=== PATIENT | female | born 1945 | race Caucasian/White ===

== ENCOUNTER 2017-08-02 11:31 | Inpatient (IN) | payer MEDICARE, OTHER ==
[2017-08-02] MEDS ORDERED: Lidocaine 4% Cream 5 GM TUBE w/ Tegaderm ONE (12:18)
[2017-08-02 12:40] LABS: Bilirubin Negative (Negative); Blood, Urine Negative (Negative); Glucose, Urine (Dipstick) Negative (Negative); Ketone, Urine Negative (Negative); Nitrite Negative (Negative); Protein, Urine (Dipstick) Negative (Neg-Trace); Urobilinogen 0.2 mg/dL (0.2-1.0)
--- NOTE | 2017-08-02 13:10 | RAD ---
PORTABLE CHEST: History: Shortness of breath. Comparison: 06-23-17 FINDINGS: Heart size is borderline with internal defibrillator device present. Right sided Mediport catheter i s again noted. The lungs are clear of infiltrates. IMPRESSION: 1. No active intrathoracic disease. 2. Borderline cardiomegaly. Scoliosis. Stable chest. POS: OFF
[2017-08-02 13:22] LABS: Hematocrit 23.4 % (36.0-47.0); Mean Platelet Volume 7.5 fL (7.4-10.4); Red Blood Cell (RBC) Count 2.52 mill/uL (4.20-5.40); White Blood Cell (WBC) Count 0.9 thou/uL (4.8-10.8)
[2017-08-02 13:45] LABS: Lactic Acid - Sepsis 1.6 mmol/L (0.5-2.2)
[2017-08-02 13:48] LABS: Hypochromia SLIGHT = 6-15 cells (100X) (0-5/hpf); Neutrophil 42 % (42-75)
[2017-08-02 13:49] LABS: ALT (SGPT) 8 U/L (8-55); AST (SGOT) 14 U/L (5-34); Alkaline Phosphatase 62 U/L (40-150); Anion Gap 12 mmol/L (10-20); BUN (Urea Nitrogen) 30 mg/dL (9.8-20.1); Bilirubin, Total 0.5 mg/dL (0.2-1.2); CK (CPK) 22 U/L (29-168); Calc. Creatinine Clearance 0 mL/min (70-130); Calcium 9.4 mg/dL (7.8-10.44); Carbon Dioxide 29 mmol/L (23-31); Chloride 90 mmol/L (98-107); Estimated GFR-MDRD 21; Globulin 2.5 g/dL (2.4-3.5); Magnesium 1.2 mg/dL (1.6-2.6)
[2017-08-02 13:50] LABS: Troponin I Less than 0.010 ng/mL (< 0.028)
[2017-08-02] MEDS ORDERED: Spironolactone 25 MG TAB PO SCH (16:46)
[2017-08-02] MEDS ORDERED: HYDROcodone/Acetaminophen 5/325 mg Tablet PO PRN (16:46)
[2017-08-02] MEDS ORDERED: Acetaminophen 325 MG TAB PO PRN (16:46)
[2017-08-02] MEDS ORDERED: Zolpidem Tartrate 5 MG TAB PO PRN (16:46)
[2017-08-02] MEDS: Sodium Chloride 0.9% 1,000 ML IV SCH (17:16)
--- NOTE | 2017-08-02 18:05 | HP ---
PRIMARY CARE PHYSICIAN: Logan Washington M.D. ONCOLOGIST: Griselda Smith M.D. [employer] SALES GREETER: Larry Fletcher M.D. CHIEF COMPLAINT: Referred to the [facility] by [facility] for h yponatremia and hypotension. HISTORY OF PRESENT ILLNESS: The patient was at the oncologist's office for a Neupogen shot today. She was noted to have low blood pressure. She was queasy, woozy which has been coming and going ove r the past week. She has breast cancer, metastatic to her liver. She had chemotherapy 6 days ago, but is unable to have chemotherapy this week due to her leukopenia. She has had no definite fever, sweats, chills, urinary complaints or respiratory complaints. PAST MEDICAL HISTORY: Breast cancer diagnosed 2010 to the liver. She had a left mastectomy and a r esection of a solitary met from the liver. 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 She has had episodes of congestive heart failure in the past. She has a pacemaker defib rillator. She had a history of thyroid insufficiency. She has recent history of UTI and is current ly on antibiotics. CURRENT MEDICATIONS: [place] Thyroid 60 mg a day, aspirin 325 mg a day, Coreg 3.125 mg twice a day, Diovan 40 mg a day, sotalol 120 mg twice a day, spironolactone 25 mg a day, probiotic, Levaquin 500 mg a day for 10 days, she is on day #8. ALLERGIES: PENICILLIN. PAST SURGICAL HISTORY: Partial hepatectomy in 2012, breast cancer surgery in 2011, pinning of a lef t hip fracture in 2012. FAMILY HISTORY: Negative for breast cancer or coronary artery disease. Mother with colon canc er. Father of some sort of insufficiency which she is unable to describe. SOCIAL HISTORY: She is . FULL CODE status. Her surrogate decision maker is her son, Bjorn Gonzalez. No tobacco. No alcohol. REVIEW OF SYSTEMS: GENERAL: No headaches or fainting. EYES: No double vision, blurred vision, flashing lights. ENT: No ear pain or drainage. No nasal bleeding. No trouble swallowing. CARDIAC: No chest pain, orthopnea or paroxysmal nocturnal dyspnea. RESPIRATORY: Chronic dyspnea on exertion. No cough or wheezing. GASTROINTESTINAL: She has had some indigestion on the Levaquin with no vomiting, no true abdominal pain. She has constipation off and on. No diarrhea. GENITOURINARY: No hematuria or dysuria. MUSCULOSKELETAL: She has occasional swelling in her legs when she eats too much salt. No pain in h er legs or joints. NEUROLOGIC: No strokes, seizures, focal weakness. PSYCHIATRIC: No anxiety, depression. SKIN: No bruising, bleeding or rash. HEME/LYMPH: No tender or swollen lymph nodes in axilla, inguinal or cervical area. PHYSICAL EXAMINATION: GENERAL: She is an alert, pleasant lady, oriented x3, cooperative. VITAL SIGNS: Her blood pressure has been taken multiple times, has been as low as 88/26. It was 90 /30 when I saw her in the emergency room, her pulse ranges from 65-74, respirations are 18-19, tempe rature is 98, room air sat is excellent 96-100. HEAD, EYES, EARS, NOSE AND THROAT: Reveal pupils equal, round, and reactive to light. Extraocular movements are intact. Sclerae are white. Tympanic membranes clear. Nose is clear. Throat is maria d r. NECK: Supple, without jugular venous distention, adenopathy, thyromegaly or bruits. CHEST: Clear to auscultation and percussion. HEART: Regular rate and rhythm. First and second heart sounds are clear. There are no appreciated murmurs or gallops. ABDOMEN: Soft, bowel sounds are normal. There is no hepatosplenomegaly, no mass, no rebound, no br uits. EXTREMITIES: Reveal no cyanosis, clubbing or edema. SKIN: Warm and dry, no bruises or rashes. PULSES: Carotid, radial, femoral, and dorsalis pedis pulses intact. HEME/LYMPH: No tender or swollen lymph nodes in axilla, inguinal or cervical area. BREASTS: Right breast is surgically absent. There is a MediPort in the right chest going up into t he right IJ. NEUROLOGICAL: Cranial nerves II-XII are intact. Deep tendon reflexes are symmetric. Moves all ext remities. DIAGNOSTIC DATA: Chest x-ray done in the emergency room today reveals a defibrillator pacemaker in the left upper chest. Her MediPort going up into the neck down into the heart, lung lewis are maria d r. There is no distinct cardiomegaly. She does have some rotation, reviewed by me. EKG, dual chintan destiny pacemaker with normal function, reviewed by me. LABORATORY DATA: Sodium 127, potassium 4.1, chloride 90, CO2 of 29, BUN 30, creatinine 2.27 and two weeks ago was 1.42, BUN 30, white count 0.9, 52% lymphocytes, hemoglobin 8.0, platelet count 140. ADMITTING DIAGNOSES: 1. Hypotension. 2. Hyponatremia. 3. Acute renal failure on chronic kidney disease stage 3. 4. Breast cancer. 5. Neutropenia. 6. Anemia. 7. Cardiomyopathy. 8. Hypothyroidism. PLAN: 1. Admit. 2. Gentle IV fluids with normal saline to treat hyponatremia and hypotension, care will be required to watch for precipitating congestive heart failure in this lady with longstanding cardiomyopathy. 3. CBC and BMP daily to monitor neutropenia and renal function in the face of acute renal failure o n top of chronic kidney disease stage 3. 4. The patient has 2 more days of Levaquin for urinary tract infection. Those will be continued. The patient has had blood cultures drawn in the oncologist's office. Those will be monitored. 5. Continue home medicines. DISCUSSION: This is a complicated lady with low sodium, low blood pressure, a [id number] ca rdiomyopathy, post-chemotherapy with neutropenia and anemia. This lady cannot be safely monitored a nd treated in 1 overnight, she will need 2-3 overnights to safely care for her problems.
[2017-08-02] MEDS: ALPRAZolam 0.25 MG TAB PO SCH (21:01)
[2017-08-02] MEDS: Sotalol HCl 80 MG TAB PO SCH (21:02)
[2017-08-02] MEDS: Carvedilol 3.125 MG TAB PO SCH (21:02)
[2017-08-03 05:21] LABS: White Blood Cell (WBC) Count 0.9 thou/uL (4.8-10.8)
[2017-08-03] MEDS: Sodium Chloride 0.9% 1,000 ML IV SCH ×2 (05:24→21:58)
[2017-08-03 05:34] LABS: Anion Gap 10 mmol/L (10-20); BUN (Urea Nitrogen) 25 mg/dL (9.8-20.1); Calc. Creatinine Clearance 30 mL/min (70-130); Calcium 8.5 mg/dL (7.8-10.44); Carbon Dioxide 27 mmol/L (23-31); Chloride 97 mmol/L (98-107); Estimated GFR-MDRD 41
[2017-08-03 05:59] LABS: Band 4 % (5-11); Hematocrit 20.3 % (36.0-47.0); Neutrophil 34 % (42-75); Nucleated RBC 2 % (0); Reactive Lymphocytes 2 % (0-10); Red Blood Cell (RBC) Count 2.16 mill/uL (4.20-5.40)
[2017-08-03] MEDS: Carvedilol 3.125 MG TAB PO SCH ×2 (08:58→21:51)
[2017-08-03] MEDS: Sotalol HCl 80 MG TAB PO SCH ×2 (08:58→21:50)
[2017-08-03] MEDS: Aspirin 325 MG TAB PO SCH (08:58)
[2017-08-03] MEDS: Enoxaparin Sodium 40 MG/0.4 ML SYRINGE SC SCH (08:59)
[2017-08-03] MEDS ORDERED: Famotidine 20 MG TAB PO SCH (11:30)
--- NOTE | 2017-08-03 14:34 | PDOC.PN ---
- Subjective Encounter Start Date: 08/03/17 Encounter Start Time: 13:50 Subjective: no complaints; no: headache, sinus pain, sore throat, sob, cough, cp , abd -: pain, dysuria, rash, neck pain, nor headache - Objective Resuscitation Status: Resuscitation Status FULL:Full Resuscitation MAR Reviewed: Yes Vital Signs & Weight: Vital Signs (12 hours) Temp Pulse Resp BP Pulse Ox 08/03/17 12:27 97.9 F 71 16 109/56 L 97 08/03/17 08:06 98.5 F 73 14 116/56 L 99 08/03/17 08:00 98.5 F 73 14 99 08/03/17 04:00 97.9 F 81 16 102/50 L 94 L Weight Admit Weight 106 lb 7 oz Weight 105 lb 14.4 oz I&O: 08/02/17 08/03/17 08/04/17 06:59 06:59 06:59 Intake Total 1770 240 Output Total 1000 Balance 770 240 Result Diagrams: 08/03/17 04:55 08/03/17 04:55 Radiology Reviewed by me: Yes Phys Exam - Physical Examination Constitutional: NAD HEENT: PERRLA, moist MMs, sclera anicteric Neck: no nodes, no JVD, full ROM Respiratory: no wheezing, no rales, no rhonchi, clear to auscultation bilateral Cardiovascular: RRR, no significant murmur Gastrointestinal: soft, non-tender, no distention, positive bowel sounds Musculoskeletal: no edema, pulses present Neurological: non-focal, normal sensation, moves all 4 limbs Psychiatric: normal affect, A&O x 3 Skin: no rash Dx/Plan (1) Arterial hypotension Status: Acute Qualifiers: Hypotension type: hypotension due to drug Qualified Code(s): I95.2 - Hypotension due to drugs Comment: most consistent with medication-induced. cardiovascular medications adjusted, monitor for response. currrently asymptomatic. monitor for s/o sepsis as is neutropenic ANC <500 (2) Chemotherapy induced neutropenia Code(s): D70.1 - AGRANULOCYTOSIS SECONDARY TO CANCER CHEMOTHERAPY; T45.1X5A - ADVERSE EFFECT OF ANTINEOPLASTIC AND IMMUNOSUP DRUGS, INIT Status: Acute Comment: on chemotherapy due to BRCA; cont neutropenic precautions (3) Breast CA Status: Chronic Qualifiers: Patient sex: female (4) CHF (congestive heart failure) Code(s): I50.9 - HEART FAILURE, UNSPECIFIED Status: Acute Qualifiers: Congestive heart failure type: systolic Congestive heart failure chronicity : chronic Qualified Code(s): I50.22 - Chronic systolic (congestive) heart failure Comment: 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 Euvolemic, without exacerbation. (5) Hypocalcemia Code(s): E83.51 - HYPOCALCEMIA Status: Acute Comment: replace, recheck (6) Hypokalemia Code(s): E87.6 - HYPOKALEMIA Status: Acute Comment: due to decreased oral intake, increased GI loss. replace, recheck (7) Hypomagnesemia Code(s): E83.42 - HYPOMAGNESEMIA Status: Acute Comment: due to decreased oral intake and increased Gi loss, replace, recheck - Plan cont current plan of care Patient responding to adjustment in cardiovascular medications. -: low clinical suspicion of sepsis -: monitor overnight; as is neutropenic, goal is to discharge [facility] if -: hospitalization not absolutely necessary -: Anticipate discharge in am. * .
--- NOTE | 2017-08-03 15:19 | CON ---
DATE OF CONSULTATION: 08/03/2017 REASON FOR CONSULTATION: Metastatic breast cancer. HISTORY OF PRESENT ILLNESS: Ms. 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 She has liver metastasis. She is under the a dvisement of [facility], but received her treatment locally. Her current treatment consists of N avelbine, which she started in May of 2017. She has struggled to maintain her white blood count for treatment requiring Neupogen for several days between treatments. Her last cycle was on 017. She presented to our clinic yesterday for routine lab draw and had a low blood pressure of 79/ 38. She was neutropenic with a white count of 900. Her sodium was 127 and her creatinine was eleva becca at 2.27 from a baseline of about 1.4. She was sent to the ER for evaluation and was admitted fo r hypotension, hyponatremia and dehydration. She was gently hydrated over the past 24 hours and her sodium and creatinine have improved. Her white count has remained 900. She has had no fever throu ghout the course of this chemotherapy. She denies any chest pain or shortness of breath. No upper respiratory symptoms. She does have mild bloating and feels constipated, but no abdominal pain. No rash or swelling in her extremities. PAST MEDICAL HISTORY: 1. Metastatic breast cancer. 2. Cardiomyopathy. 3. Hypothyroidism. PAST SURGICAL HISTORY: 1. Cardiac defibrillator placement. 2. Mastectomy. 3. Hip surgery. 4. Partial hepatectomy. ALLERGIES: AMOXICILLIN. HOME MEDICATIONS: 1. [place] Thyroid 60 mg daily. 2. Carvedilol 6.25 mg daily. 3. Diovan 40 mg daily. 4. Sotalol 120 mg 2 tabs daily. 5. Spironolactone and hydrochlorothiazide 25 and 25 b.i.d. FAMILY HISTORY: Mother had colon cancer at the age of 56. SOCIAL HISTORY: , has 1 child. Lives alone. No alcohol, tobacco or illicit drug use. REVIEW OF SYSTEMS: Twelve-point review of systems is negative except for noted in the HPI. PHYSICAL EXAMINATION: VITAL SIGNS: Temperature is 98.5, pulse is 73, respiratory rate 14, BP is 116/56. She is 99% on ro om air. GENERAL: Well-developed, well-nourished female in no acute distress. HEENT: Normocephalic, atraumatic. Pupils equal and reactive to light. No oral lesions. NECK: Supple without JVD or mass. CARDIOVASCULAR: Regular rate and rhythm. LUNGS: Clear. ABDOMEN: Soft, nontender, bowel sounds are positive. EXTREMITIES: There is no clubbing, cyanosis or edema. SKIN: No rash. HEMATOLOGIC: There is no petechia or purpura. NEUROLOGIC: Nonfocal. PSYCHIATRIC: The patient is alert and oriented and appropriate. PERTINENT LABORATORY AND X-RAYS: Current WBCs are 900, hemoglobin 6.7, hematocrit 20.3, platelet co unt 116,000. She has 34% neutrophils, 4% bands, 42% lymphocytes, and 14% monocytes. Sodium is 130, potassium 3.7, chloride 97, CO2 is 27, BUN is 25, creatinine 1.29, calcium is 8.5, magnesium 1.2. Total bilirubin is 0.5, AST is 14, ALT is 8, alkaline phosphatase is 62, creatinine kinase is 22. C K-MB 0.8. Troponin is negative. Serum total protein is 6, albumin 3.4, globulin 2.5. Urine was ne gative for bacteria. Chest x-ray showed no acute process but cardiomegaly. ASSESSMENT: 1. Metastatic breast cancer. 2. Neutropenia secondary to chemo. 3. Hyponatremia. 4. Dehydration. 5. Acute kidney injury. DISCUSSION: The patient will have Neupogen continued in the inpatient setting. She has been given IV fluids with improvement in her blood pressure and her hyponatremia. We will maintain neutropenic precautions. The patient is complaining of constipation. We will add Colace and Pepcid to her reg imen. Her hemoglobin dropped overnight from 8-6.7, it is likely hemodilution. We will recheck in t he a.m. and transfuse for hemoglobin less than 7. Hopefully, she will improve in the next 24 hours as long as she remains fever free. Thank you for the consult. We will follow her hospital course closely. Can be discharged with neut chema as this has been her .
[2017-08-03] MEDS ORDERED: Valsartan 80 MG TAB PO SCH (21:00)
[2017-08-03] MEDS: ALPRAZolam 0.25 MG TAB PO SCH (21:50)
[2017-08-03] MEDS: Famotidine 20 MG TAB PO SCH (21:51)
[2017-08-04 06:13] LABS: #Eosinphils 0.1 thou/uL (0.0-0.7); #Lymphocytes 0.6 thou/uL (1.20-3.40); #Monocytes 0.2 thou/uL (0.11-0.59); #Neutrophils 1.1 thou/uL (1.40-6.50); %Basophils 1.9 % (0.0-1.0); %Lymphocytes 27.7 % (21.0-51.0); %Monocytes 11.4 % (0.0-10.0); Hematocrit 22.6 % (36.0-47.0); Mean Platelet Volume 6.8 fL (7.4-10.4); Red Blood Cell (RBC) Count 2.42 mill/uL (4.20-5.40)
[2017-08-04 06:36] LABS: Anion Gap 10 mmol/L (10-20); BUN (Urea Nitrogen) 15 mg/dL (9.8-20.1); Calc. Creatinine Clearance 40 mL/min (70-130); Calcium 8.9 mg/dL (7.8-10.44); Carbon Dioxide 28 mmol/L (23-31); Chloride 94 mmol/L (98-107); Estimated GFR-MDRD 56
[2017-08-04] MEDS: Docusate 100 MG CAP PO PRN ×2 (09:36→20:43)
[2017-08-04] MEDS: Sotalol HCl 80 MG TAB PO SCH ×2 (09:37→20:36)
[2017-08-04] MEDS: Carvedilol 3.125 MG TAB PO SCH ×2 (09:37→20:39)
[2017-08-04] MEDS: Aspirin 325 MG TAB PO SCH (09:37)
[2017-08-04] MEDS: Enoxaparin Sodium 40 MG/0.4 ML SYRINGE SC SCH (09:42)
[2017-08-04] MEDS: Famotidine 20 MG TAB PO SCH ×2 (09:42→20:36)
[2017-08-04] MEDS: ALPRAZolam 0.25 MG TAB PO PRN (11:10)
--- NOTE | 2017-08-04 12:30 | PRG ---
DATE OF SERVICE: 08/04/2017 SUBJECTIVE: The patient was seen and examined at bedside. She is feeling better. Her blood pressu re is doing better. She ate her breakfast without any problems. She asked to discontinue her IV fl uids because she was always tendency to retain water. OBJECTIVE: VITAL SIGNS: Blood pressure is 104/53, pulse is 94, temperature is 98.6, pulse oximetry 74, and res piratory rate is 18. HEENT: Her head is normocephalic and atraumatic. Eyes are PERRLA. Her scalp is shaved. Pupils ar e responding to light properly. Conjunctivae pale. Oral mucosa is moist. NECK: Supple, no lymphadenopathy. LUNGS: Clear. HEART: S1, S2 normal. No S3, no S4, no murmur. ABDOMEN: Soft, nontender, nondistended. Bowel sounds are present. No organomegaly. EXTREMITIES: No clubbing, cyanosis, or edema. NEUROLOGIC: She is alert and oriented x4. There is no any motor or sensory deficit. Cranial nerve s are intact. LABORATORY DATA: Showed white count of 2.0, hemoglobin 7.6, hematocrit 22.6, platelet count is 133. Sodium of 128, potassium 3.8, chloride 94, CO2 of 28, BUN 15, creatinine 0.98. The rest of chemis try within normal limits. IMPRESSION: 1. Hypotension, resolved. This was most likely related to dehydration. Her creatinine and BUN is back to normal with IV fluids. 2. Leukopenia improving. She received Neupogen yesterday. Her WBC level is up to 2.0 today and christa is scheduled for additional shot of Neupogen 480 mcg subcutaneously at 9:00 today. 3. Hypothyroidism, on replacement. 4. History of right breast cancer with metastasis to the liver, status post chemotherapy. 5. Normocytic anemia, most likely worsened with IV fluids. Now, her hemoglobin is up to 7.6 this m orning, so she would not be transfused. 6. Hyponatremia and hypochloremia. We will limit her fluid intake to 1500 and will try to get her out of bed today and if she is stable, I would like to send her home late tonight or early tomorrow morning to prevent some complications from being in the hospital and having significant neutropenia and we will continue deep venous thrombosis prophylaxis with Lovenox, and peptic ulcer disease proph ylaxis with Pepcid.
--- NOTE | 2017-08-04 14:48 | EKG ---
Test Reason : Blood Pressure : / mmHG Vent. Rate : 083 BPM Atrial Rate : 083 BPM P-R Int : 218 ms QRS Dur : 114 ms QT Int : 414 ms P-R-T Axes : 086 096 071 degrees QTc Int : 486 ms Atrial-paced rhythm with prolonged AV conduction with frequent ventricular-paced complexes and with occasional Premature ventricular complexes Rightward axis Pulmonary disease pattern Septal infarct , age undetermined Abnormal ECG Confirmed by NELL LANDA, TEOFILO Murphy ([id number]), technical writer and editor ALICE PAULA ([id number]) on 08/04/2017 2:48:40 PM Referred By: ROGER Confirmed By:TEOFILO CAMEJO MD
[2017-08-04] MEDS ORDERED: Sodium Chloride 0.9% 250 ML 250 ML IVPB SCH (20:00)
[2017-08-04] MEDS: ALPRAZolam 0.25 MG TAB PO SCH (20:36)
[2017-08-05 06:39] VITALS: BMI 18.7
[2017-08-05 06:43] LABS: Anion Gap 10 mmol/L (10-20); BUN (Urea Nitrogen) 13 mg/dL (9.8-20.1); Calc. Creatinine Clearance 42 mL/min (70-130); Calcium 8.6 mg/dL (7.8-10.44); Carbon Dioxide 27 mmol/L (23-31); Chloride 94 mmol/L (98-107); Estimated GFR-MDRD 57
[2017-08-05 06:54] LABS: Hematocrit 22.9 % (36.0-47.0); Red Blood Cell (RBC) Count 2.45 mill/uL (4.20-5.40); White Blood Cell (WBC) Count 8.1 thou/uL (4.8-10.8)
[2017-08-05 06:55] LABS: Band 9 % (5-11); Neutrophil 67 % (42-75); Nucleated RBC 2 % (0)
[2017-08-05] MEDS: Aspirin 325 MG TAB PO SCH (09:12)
[2017-08-05] MEDS: Carvedilol 3.125 MG TAB PO SCH (09:12)
[2017-08-05] MEDS: Sotalol HCl 80 MG TAB PO SCH ×2 (09:12→20:30)
[2017-08-05] MEDS: Famotidine 20 MG TAB PO SCH ×2 (09:12→20:28)
[2017-08-05] MEDS: Enoxaparin Sodium 40 MG/0.4 ML SYRINGE SC SCH (09:13)
[2017-08-05] MEDS: ALPRAZolam 0.25 MG TAB PO PRN (09:14)
[2017-08-05] MEDS: Docusate 100 MG CAP PO PRN (09:43)
[2017-08-05 10:55] LABS: Potassium, Urine 15.5 mmol/L
[2017-08-05 11:00] LABS: Uric Acid 8.3 mg/dL (2.6-6.0)
[2017-08-05 11:03] LABS: Magnesium 0.9 mg/dL (1.6-2.6)
[2017-08-05] MEDS ORDERED: Magnesium Oxide 400 MG TAB PO SCH ×2 (11:30→21:00)
[2017-08-05] MEDS ORDERED: Magnesium 2 GM/NS 0.9% 100 ML 2 GM in Premix Bag 1 BAG IVPB SCH (11:30)
--- NOTE | 2017-08-05 14:40 | PRG ---
DATE OF SERVICE: 08/05/2017 SUBJECTIVE: The patient is seen and examined at the bedside. The patient is doing somewhat better today, although she had hypotensive episode last night. She was giving IV fluids, but she is doing this better this morning. PHYSICAL EXAMINATION: VITAL SIGNS: Her blood pressure is up to 128/61, pulse is 73, temperature is 98.3, her maximal temp erature is 98.3, respiratory rate is 16, and pulse oximetry is 96% on room air. HEAD: Atraumatic, normocephalic. HEENT: Skin is pale. Pupils are responding to light properly. Conjunctivae are pale. Oral mucosa is moist. NECK: Supple, no lymphadenopathy. Thyroid is not palpable. LUNGS: Clear. HEART: S1, S2 normal, no S3, no S4 or any murmur. ABDOMEN: Soft, nontender, nondistended. Bowel sounds are present. No organomegaly. EXTREMITIES: No clubbing, cyanosis or edema. NEUROLOGIC: She is alert and oriented x4. There is no any sensory or motor deficits present. Cran ial nerves are intact. Right upper chest is with a MediPort placed under the skin. There is no matt thema of this area. LABORATORY DATA: Showed white count of 8.1, hemoglobin 7.6, hematocrit 22.9, and platelet count is 151. Sodium is 127, potassium 3.9, chloride 94, CO2 is 27, BUN 13, creatinine 0.97, glucose 90, and calcium 8.6. Microbiology: Two blood cultures came back negative. IMPRESSION AND PLAN: 1. Hypotension, recurrent. The patient was given IV bolus. We are going to stop her Coreg and con tinue her sotalol. 2. Leukopenia, status post chemotherapy, improved with Neupogen. Her white count is up to 8.1 toda y. We will continue Neupogen daily. 3. Hyponatremia and hypochloremia. The patient was placed on oral fluids less than 1500 mL per 24 hours. Also, I am going to obtain urine and serum osmolalities and urine electrolytes to do further diagnostic workup of her hyponatremia to rule out syndrome of inappropriate antidiuretic hormone re lated to cancer. Also, we are going to continue her peptic ulcer disease prophylaxis with Pepcid an d deep venous thrombosis prophylaxis with Lovenox. She will ambulate in the castro today and we will see whether she can be discharged tomorrow if her hyponatremia and hypochloremia improves with curre nt measures.
[2017-08-05] MEDS: ALPRAZolam 0.25 MG TAB PO SCH (20:28)
[2017-08-06] MEDS: ALPRAZolam 0.25 MG TAB PO PRN (02:16)
[2017-08-06 06:27] LABS: Anion Gap 11 mmol/L (10-20); BUN (Urea Nitrogen) 11 mg/dL (9.8-20.1); Calc. Creatinine Clearance 47 mL/min (70-130); Calcium 8.9 mg/dL (7.8-10.44); Carbon Dioxide 27 mmol/L (23-31); Chloride 94 mmol/L (98-107); Estimated GFR-MDRD 65; Magnesium 1.1 mg/dL (1.6-2.6)
[2017-08-06 06:37] LABS: Band 16 % (5-11); Dohle Bodies SLIGHT; Hematocrit 23.4 % (36.0-47.0); Mean Platelet Volume 6.8 fL (7.4-10.4); Metamyelocyte 4 % (0-0); Myelocyte 2 % (0-0); Neutrophil 57 % (42-75); Nucleated RBC 4 % (0); Polychromasia SLIGHT = 2-3 cells (100X) (0-2/hpf); Red Blood Cell (RBC) Count 2.49 mill/uL (4.20-5.40); Toxic Granulation SLIGHT; White Blood Cell (WBC) Count 23.5 thou/uL (4.8-10.8)
[2017-08-06] MEDS ORDERED: Magnesium Sulfate 4 GM, Admixture Fee 1 EACH in Sodium Chloride 0.9% 250 ML 250 ML IVPB SCH (06:45)
[2017-08-06] MEDS: Enoxaparin Sodium 40 MG/0.4 ML SYRINGE SC SCH (09:21)
[2017-08-06] MEDS: Sotalol HCl 80 MG TAB PO SCH ×2 (09:23→21:06)
[2017-08-06] MEDS: Magnesium Oxide 400 MG TAB PO SCH (09:23)
[2017-08-06] MEDS: Aspirin 325 MG TAB PO SCH (09:23)
[2017-08-06] MEDS: Famotidine 20 MG TAB PO SCH ×2 (09:23→21:07)
[2017-08-06] MEDS: Docusate 100 MG CAP PO PRN (09:45)
--- NOTE | 2017-08-06 11:20 | CON ---
DATE OF CONSULTATION: 08/06/2017 HISTORY OF PRESENT ILLNESS: Ms. Gonzalez is a 71-year-old white female with known history of met astatic breast cancer, cardiomyopathy, hypothyroidism and was admitted for hypotension with hyponatr emia. Please note this patient has been on a diuretic and Diovan as an outpatient. Please note I d id review her home medications and she was on a combination of spironolactone and hydrochlorothiazid e. This could be contributing with her hyponatremia and hypertension. We are now being consulted f or further management of this hyponatremia. The patient is concerned about generalized swelling. She tells me after each chemotherapy she begin s to swell and for that reason she is on Aldactazide. REVIEW OF SYSTEMS: No chest pain. No shortness of breath. Positive for moderate anxiety. No naus ea, no vomiting, no syncopal episode, no gross hematuria, no dysuria, no urinary frequency. No abdo selene pain, occasional joint pains, no headache, no sore throat, no fever or chills. No melena, no hematemesis. Appetite fair. Energy level is fair. MEDICATIONS: Aldactazide currently on hold, Xanax 0.25 mg b.i.d. p.r.n., [place] 5/325 q.4 h. as ne eded, Lovenox 40 mg subcu every day, K-Phos 500 mg p.o. q.i.d.,, Thyroid [place] 60 mg daily, Ambien 5 mg at bedtime p.r.n., K-Phos 500 mg p.o. b.i.d. Magnesium oxide 400 mg daily. PAST MEDICAL HISTORY: 1. Hypothyroidism. 2. Cardiomyopathy. 3. Breast cancer with metastasis to the liver - currently on chemotherapy. 4. Status post UTI. PAST SURGICAL HISTORY: 1. Status post AICD/defibrillator placement. 2. The patient is status post breast biopsy. 3. Status post right breast mastectomy. 4. Status post tonsillectomy. 5. Status post partial liver resection. 6. Status post left hip surgery. ALLERGIES: AMOXICILLIN, PENICILLIN. TRAUMA: Status post left hip fracture. IMMUNIZATIONS: Up to date. HOSPITALIZATIONS: Please see past medical history. SOCIAL HISTORY: The patient is , lives alone. She lives in [place]. Retired teacher. Edu cation: Some college courses. No blood transfusion. No history of smoking, no alcohol intake, no IV drug abuse. FAMILY HISTORY: Noncontributory. PHYSICAL EXAMINATION: VITAL SIGNS: Blood pressure 102/60, heart rate 70, respiratory rate 16, temperature 97.8, pulse ox 92%. GENERAL: Noted to be awake, alert, comfortable, not in overt distress. SKIN: Adequate turgor. HEENT: She has pinkish conjunctivae, anicteric sclerae. NECK: No neck mass, no carotid bruits, no JVD. CHEST: No deformities. LUNGS: Clear breath sounds. No wheezing, no crackles. HEART: Normal sinus rhythm. No murmur, no gallops or rubs. ABDOMEN: Globular, soft, nontender, no masses. EXTREMITIES: No edema, no deformities. NEUROLOGIC: Awake, oriented to 3 spheres. Moving all extremities. The patient is relatively anxio us. LABORATORY: 08/06/2017 - White count 23.5, hemoglobin 7.6. Sodium 128, potassium 3.8, chloride 94, carbon dioxide 27, BUN 11, creatinine 0.86, glucose 82, calcium 8.9, magnesium 1.1. Further review of her serum sodium 08/05/2017 - 127, 08/03/2017 - 130. Urinalysis shows urine sodium of 37, urine creatinine of 88.82. The patient has also a reported uric acid of 8.6. ASSESSMENT AND PLAN: 1. Hyponatremia - the possibility of hypovolemic hyponatremia remains especially with a low blood p ressure and previous intake of diuretics. However, her urine sodium is not suggestive of a prerenal azotemia. She is slowly improving with just free water restriction and discontinuation of her diur etics with regards to the serum sodium. Possibility is that of syndrome of inappropriate antidiuret ic hormone secretion. My bias is simply to observe her. If needed, we can always empirically volum e replete her as a challenge to see if she will improve her serum sodium. For the moment, we will c ontinue to hold off any IV volume repletion. Continue free water restriction. Continue to hold any hydrochlorothiazide. If we need to diurese her we could consider furosemide since this will enhanc e free water excretion. 2. Breast cancer with mets - the patient being managed by Hematology, receiving chemotherapy. She also follows up with [facility]. We will recheck base met and CBC in a.m.
[2017-08-06] MEDS ORDERED: Eucerin (Mineral Oil/Petrolatum,White) 30 gm Jar TOP PRN (12:28)
[2017-08-06] MEDS ORDERED: Polyethylene Glycol 3350 17 GM Packet PO PRN (12:28)
--- NOTE | 2017-08-06 13:47 | PDOC.PN ---
- Subjective Encounter Start Date: 08/06/17 Encounter Start Time: 12:30 Patient seen and examined. No new complaints. No overnight events - Objective Resuscitation Status: Resuscitation Status FULL:Full Resuscitation MAR Reviewed: Yes Vital Signs & Weight: Vital Signs (12 hours) Temp Pulse Resp BP BP Pulse Ox 08/06/17 09:23 79 126/58 L 08/06/17 04:00 97.8 F 70 16 102/60 92 L 08/06/17 02:23 72 114/56 L Weight Admit Weight 106 lb 7 oz Weight 109 lb 4.8 oz I&O: 08/05/17 08/06/17 08/07/17 06:59 06:59 06:59 Intake Total 370 1540 Output Total 400 800 Balance -30 740 Result Diagrams: 08/06/17 05:22 08/07/17 07:15 EKG Reviewed by me: Yes (Tele SR/paced) Phys Exam - Physical Examination Constitutional: NAD Respiratory: no wheezing, no rhonchi Cardiovascular: RRR, no rub Gastrointestinal: soft, non-tender, positive bowel sounds Musculoskeletal: edema present (1 +) Neurological: moves all 4 limbs Dx/Plan (1) Electrolyte abnormality Code(s): E87.8 - OTH DISORDERS OF ELECTROLYTE AND FLUID BALANCE, NEC Status: Acute (2) JABARI (acute kidney injury) Code(s): N17.9 - ACUTE KIDNEY FAILURE, UNSPECIFIED Status: Acute (3) Hyponatremia Code(s): E87.1 - HYPO-OSMOLALITY AND HYPONATREMIA Status: Acute Comment: prob due to diuretics vs SIADH (4) Chemotherapy induced neutropenia Code(s): D70.1 - AGRANULOCYTOSIS SECONDARY TO CANCER CHEMOTHERAPY; T45.1X5A - ADVERSE EFFECT OF ANTINEOPLASTIC AND IMMUNOSUP DRUGS, INIT Status: Acute Comment: on chemotherapy due to BRCA; cont neutropenic precautions (5) Hypotension Status: Acute (6) Arterial hypotension Status: Acute Qualifiers: Hypotension type: hypotension due to drug Qualified Code(s): I95.2 - Hypotension due to drugs (7) Other issues per previous notes - Plan cont current plan of care, DVT proph w/lovenox, DVT proph w/SCDs * Replace Mg/P * Nephrology input appreciated * AM labs * Oncology following * Add Colace * Increase activity * DC Lovenox * Possible dc in AM if electrolytes normal * Cont fluid restriction Review of Systems - Review of Systems Respiratory: negative: Cough, Dry, Shortness of Breath, Hemoptysis, SOB with Excertion, Pleuritic Pain, Sputum, Wheezing Cardiovascular: negative: Chest Pain, Palpitations, Orthopnea, Paroxysmal Noc. Dyspnea, Edema, Light Headedness, Other Gastrointestinal: negative: Nausea, Vomiting, Abdominal Pain, Diarrhea, Constipation, Melena, Hematochezia, Other - Medications/Allergies Allergies/Adverse Reactions: Allergies Allergy/AdvReac Type Severity Reaction Status Date / Time Penicillins Allergy Unknown Verified 05/28/14 12:25 amoxicillin [Amoxicillin] AdvReac Severe Emesis Verified 05/28/14 12:25 Medications: Current Medications Acetaminophen (Tylenol) 650 mg PO Q4H PRN PRN Reason: Headache/Fever or Pain Hydrocodone Bitart/Acetaminophen ([place] 5/325) 1 tab PO Q4H PRN PRN Reason: Moderate Pain (4-6) Alprazolam (Xanax) 0.25 mg PO HS [facility] Last Admin: 08/05/17 20:28 Dose: 0.25 mg Alprazolam (Xanax) 0.25 mg PO BIDPRN PRN PRN Reason: Anxiety Last Admin: 08/06/17 02:16 Dose: 0.25 mg Aspirin (Aspirin) 325 mg PO DAILY [facility] Last Admin: 08/06/17 09:23 Dose: 325 mg Docusate Sodium (Colace) 100 mg PO BID [facility] Famotidine (Pepcid) 20 mg PO BID [facility] Last Admin: 08/06/17 09:23 Dose: 20 mg Magnesium Oxide (Magnesium Oxide) 400 mg PO DAILY [facility] Last Admin: 08/06/17 09:23 Dose: 400 mg Mineral Oil/White Petrolatum (Eucerin Cream) 0 gm TOP BIDPRN PRN PRN Reason: Dry Skin Phosphorus ([place] Neutral) 500 mg PO QID-WM [facility] Polyethylene Glycol (Miralax) 17 gm PO DAILY PRN PRN Reason: Constipation Sodium Chloride (Flush - Normal Saline) 10 ml IVF Q12HR [facility] Last Admin: 08/06/17 09:28 Dose: 10 ml Sodium Chloride (Flush - Normal Saline) 10 ml IVF PRN PRN PRN Reason: Saline Flush Sotalol HCl (Betapace) 80 mg PO BID [facility] Last Admin: 08/06/17 09:23 Dose: 80 mg Thyroid ([place] Thyroid) 60 mg PO DAILY [facility] Last Admin: 08/06/17 09:45 Dose: 60 mg Zolpidem Tartrate (Ambien) 5 mg PO HSPRN PRN PRN Reason: Insomnia
[2017-08-06] MEDS: K-Phos Neutral 250 MG TAB PO SCH ×3 (15:49→21:06)
[2017-08-06] MEDS: Docusate 100 MG CAP PO SCH (21:06)
[2017-08-06] MEDS: ALPRAZolam 0.25 MG TAB PO SCH (21:07)
[2017-08-07 08:02] LABS: Anion Gap 10 mmol/L (10-20); BUN (Urea Nitrogen) 10 mg/dL (9.8-20.1); BUN/Creatinine Ratio 10.31; Calc. Creatinine Clearance 42 mL/min (70-130); Calcium 9.1 mg/dL (7.8-10.44); Carbon Dioxide 33 mmol/L (23-31); Chloride 92 mmol/L (98-107); Estimated GFR-MDRD 57; Magnesium 1.7 mg/dL (1.6-2.6); Phosphorus 4.5 mg/dL (2.3-4.7)
--- NOTE | 2017-08-07 08:22 | PRG ---
DATE OF SERVICE: 08/07/2017 SUBJECTIVE: Ms. Gonzalez is a 71-year-old white female who was seen for her hyponatremia. Consid eration was for hypovolemic hyponatremia versus SIADH. However, I have noted that she has some mone a in her legs and arms. I am very suspicious that this may be related to a dilutional hyponatremia. We will start diuresing this patient with Lasix. No complaints of chest pain, but she does mention of mild shortness of breath. This is chronic and intermittent in nature. PHYSICAL EXAMINATION: VITAL SIGNS: Blood pressure is 118/57, heart rate 75, respiratory rate 20, temperature 99, and puls e ox 93%. GENERAL: Noted to be awake, alert, comfortable, not in distress. SKIN: Adequate turgor. HEENT: Pinkish conjunctivae. Anicteric sclerae. NECK: No neck mass, no carotid bruits, no JVD. CHEST: No deformities. LUNGS: Clear breath sounds. No wheezing, no crackles. HEART: Normal sinus rhythm. No murmur, no gallops, no rubs. ABDOMEN: Globular, soft, nontender. EXTREMITIES: Positive for edema. MEDICATIONS: Medications of 08/07/2017 was reviewed. LABORATORY DATA: Laboratories of 08/06/2017; white count 23.5, hemoglobin 7.6. Sodium 128, potassi um 3.8, chloride 94, carbon dioxide 27, BUN 11, creatinine 0.86, glucose 82, magnesium 1.1, and phos phorus 2.1. On 08/07/2017 base met pending. ASSESSMENT AND PLAN: 1. Hyponatremia - with findings of edema, consider the possibility of dilutional hyponatremia. We will start furosemide at 14 mg tablet once a day. Hopefully, this will help improve the serum sodiu m. 2. Generalized edema - start furosemide 40 mg tablet once a day. Hold off any hydrochlorothiazide or spironolactone since this may aggravate hyponatremia. 3. Cardiomyopathy - symptomatic treatment. The patient is mildly short of breath today. 4. Breast cancer with metastasis - Oncology following. 5. We will check basic metabolic panel and CBC in a.m.
[2017-08-07] MEDS ORDERED: Furosemide 20 MG TAB PO SCH ×2 (09:00)
[2017-08-07] MEDS: Aspirin 325 MG TAB PO SCH (09:40)
[2017-08-07] MEDS: Sotalol HCl 80 MG TAB PO SCH (09:40)
[2017-08-07] MEDS: K-Phos Neutral 250 MG TAB PO SCH ×2 (09:40→20:03)
[2017-08-07] MEDS: Magnesium Oxide 400 MG TAB PO SCH (09:40)
[2017-08-07] MEDS: Docusate 100 MG CAP PO SCH (09:41)
[2017-08-07] MEDS: Famotidine 20 MG TAB PO SCH (09:41)
--- NOTE | 2017-08-07 10:56 | RAD ---
UPRIGHT PORTABLE CHEST ONE VIEW: History: 71-year-old female with shortness of breath. Comparison: 08-02-17 FINDINGS: Right central line and injection port. Surgical clips in the right axillary. Left ICD. Scoliotic def ormity of the thoracolumbar lumbar vertebral column. Chronic pleural and parenchymal changes in the right infrahilar region and lower lobe and costophrenic angle, stable. No confluent pneumonia, overt edema, or pleural effusion. IMPRESSION: Stable chronic changes. No cute process. POS: OFF
--- NOTE | 2017-08-07 14:43 | DIS ---
DATE OF ADMISSION: 08/02/2017 DATE OF DISCHARGE: 08/07/2017 DISCHARGE DISPOSITION: Home. FOLLOWUP: 1. Follow up with primary care physician, Dr. Washington in 1 week. 2. Follow up with Dr. Santy Hirsch next week. 3. Follow up with Dr. Smith for chemotherapy. A 2-liter fluid restriction was recommended. ALLERGIES: PENICILLIN/AMOXICILLIN. The patient was seen and examined on the day of discharge. Denies any new complaints. Overall, fee ls better. DISCHARGE MEDICATIONS: 1. Aspirin 325 mg at bedtime. 2. Carvedilol 3.125 mg b.i.d. 3. Cetirizine 10 mg at bedtime. 4. Colace 100 mg as needed. 5. Pepcid 10 mg as needed. 6. Lasix 40 mg daily with potassium chloride 10 mEq daily (new medication). 7. Sotalol 120 mg b.i.d. 8. [place] Thyroid 60 mg daily. 9. Valsartan 40 mg q.p.m. Please note that Aldactazide was discontinued. BRIEF HOSPITAL COURSE: Patient is a 71-year-old female with metastatic breast cancer, currently on chemotherapy, presented to the hospital with low blood pressure. She also felt generally weak. Ple ase refer to the history and physical dated 08/07/2017 for further details. The patient was admitted to the hospital with a diagnosis of hypotension with acute kidney injury. Her creatinine, on admission, was 2.27 with sodium of 127. She was started on IV fluids with good i mprovement. Other electrolytes including magnesium and phosphorus were replaced. Today, on the day of discharge, her sodium is 131 with phosphorus 4.5, magnesium of 1.7. She was also seen by Nephro logyDr. Hirsch. Dr. Smith's team also followed the patient during this hospital stay. Her blood cultures were negative. Chest x-ray was negative for infiltrate. Urinalysis was negative for WBC o r bacteria. She has been started on Lasix by Nephrology. Repeat labs next week is recommended. Pr [facility] care physician advised to follow. She was also advised 2-liter fluid restriction. She has be en cleared by consultants for discharge. FINAL DIAGNOSES: 1. Acute kidney injury, resolved. Aldactazide was discontinued. 2. Electrolyte imbalance including hyponatremia with sodium of 126 on admission, hypomagnesemia wit h lowest magnesium 0.9, and hypophosphatemia with phosphorus 2.1, improved. Sodium on the day of di scharge is 131. 3. Neutropenia. Her WBC, on admission, was 0.8. She received Neupogen. Her WBC improved to 23.5. 4. Hypotension secondary to acute kidney injury, probably from diuretics. 5. History of breast cancer, on chemotherapy. 6. Hypothyroidism. 7. Chronic systolic heart failure, status post automated implantable cardioverter-defibrillator. L ast ejection fraction per patient's report was in 40% range. 8. Chronic kidney disease, stage 2. 9. Penicillin allergy. 10. Hypothyroidism. Plan of care was discussed with the patient. She stated understanding. Total time coordinating the discharge of this patient was 33 minutes.
[2017-08-07 19:55] VITALS: BP 109/58; TEMP 98
[2017-08-07] MEDS ORDERED: Sotalol HCl 80 MG TAB PO SCH (21:00)
== END 2017-08-07 13:46 | disposition home or self-care (01) | DRG 683 ==
LOC: ERS 11:31 → ONC 15:25 → 2NO 19:03
PROVIDERS: ADMIT Internal Medicine; ATTEND Internal Medicine
DX: N17.9 Acute kidney failure, unspecified (principal); E87.1 Hypo-osmolality and hyponatremia; I50.22 Chronic systolic (congestive) heart failure; C78.7 Secondary malignant neoplasm of liver and intrahepatic bile duct; I42.9 Cardiomyopathy, unspecified; D70.1 Agranulocytosis secondary to cancer chemotherapy; E83.42 Hypomagnesemia; E86.0 Dehydration; N39.0 Urinary tract infection, site not specified; I95.2 Hypotension due to drugs; T50.2X5A Adverse effect of carbonic-anhydrase inhibitors, benzothiadiazides and other diuretics, initial encounter; N18.2 Chronic kidney disease, stage 2 (mild); T45.1X5A Adverse effect of antineoplastic and immunosuppressive drugs, initial encounter; Z17.0 Estrogen receptor positive status [ER+]; C50.911 Malignant neoplasm of unspecified site of right female breast; E83.51 Hypocalcemia; E03.9 Hypothyroidism, unspecified; E83.39 Other disorders of phosphorus metabolism; Z88.0 Allergy status to penicillin; Z95.810 Presence of automatic (implantable) cardiac defibrillator; Z90.11 Acquired absence of right breast and nipple
CPT/HCPCS: 36415; 71010; 80048; 80053; 80069; 81003; 82248; 82436; 82533; 82553; 82570; 83605; 83615; 83735; 83930; 83935; 84100; 84133; 84300; 84484; 84550; 85025; 87040; 93005; 96360; A4216; J1447; J1642; J1650; J3475; J7050

== ENCOUNTER 2017-08-09 12:44 | Day surgery (SDC) | payer MEDICARE ==
[2017-08-09] MEDS ORDERED: Acetaminophen 500 MG TAB PO SCH (13:00)
[2017-08-09] MEDS ORDERED: Furosemide 20 MG/2 ML VIAL SLOW IVP SCH (13:00)
[2017-08-09] MEDS ORDERED: diphenhydrAMINE HCl 25 MG CAP PO SCH (13:00)
[2017-08-09] MEDS ORDERED: Sodium Chloride 0.9% 20 ML ONE (14:29)
[2017-08-09 19:51] VITALS: BP 118/61; TEMP 98.8
[2017-08-09 20:10] LABS: Hematocrit 31.4 % (36.0-47.0); Mean Platelet Volume 8.6 fL (7.4-10.4); Red Blood Cell (RBC) Count 3.32 mill/uL (4.20-5.40); White Blood Cell (WBC) Count 10.6 thou/uL (4.8-10.8)
[2017-08-09 20:22] LABS: Anisocytosis SLIGHT = 6-15 cells (100X) (0-5/hpf); Band 21 % (5-11); Neutrophil 59 % (42-75); Polychromasia MODERATE = 3-4 cells (100X) (0-2/hpf)
== END 2017-08-09 19:50 | disposition home or self-care (01) ==
LOC: ONC/OP 12:44
PROVIDERS: ATTEND Internal Medicine Medical Oncology
PROC: 30233N1 Transfusion of Nonautologous Red Blood Cells into Peripheral Vein, Percutaneous Approach (ICD-10-PCS; principal; 2017-08-09)
DX: D64.9 Anemia, unspecified (principal); D69.6 Thrombocytopenia, unspecified; C50.919 Malignant neoplasm of unspecified site of unspecified female breast; C78.7 Secondary malignant neoplasm of liver and intrahepatic bile duct; I42.9 Cardiomyopathy, unspecified; I50.9 Heart failure, unspecified; N18.3 Chronic kidney disease, stage 3 (moderate); E03.9 Hypothyroidism, unspecified; Z79.82 Long term (current) use of aspirin; Z79.899 Other long term (current) drug therapy; Z88.0 Allergy status to penicillin; Z95.810 Presence of automatic (implantable) cardiac defibrillator; Z90.12 Acquired absence of left breast and nipple; Z90.89 Acquired absence of other organs; Z98.890 Other specified postprocedural states; Z87.81 Personal history of (healed) traumatic fracture; Z87.440 Personal history of urinary (tract) infections
CPT/HCPCS: 36430; 85025; 86850; 86900; 86901; 96374; A4216; J1642; J1940; P9016

== ENCOUNTER 2017-09-20 08:52 | Day surgery (SDC) | payer MEDICARE ==
[2017-09-20] MEDS ORDERED: Sodium Chloride 0.9% 20 ML ONE (08:58)
[2017-09-20] MEDS ORDERED: Acetaminophen 500 MG TAB PO SCH (09:00)
[2017-09-20] MEDS ORDERED: diphenhydrAMINE 25 MG CAP PO SCH (09:00)
[2017-09-20 14:38] VITALS: BP 121/59; TEMP 97.9
[2017-09-20 15:25] LABS: #Lymphocytes 0.9 thou/uL (1.20-3.40); #Monocytes 0.1 thou/uL (0.11-0.59); #Neutrophils 5.1 thou/uL (1.40-6.50); %Basophils 0.4 % (0.0-1.0); %Eosinophils 0.2 % (0.0-10.0); %Lymphocytes 14.2 % (21.0-51.0); %Monocytes 1.4 % (0.0-10.0); Mean Platelet Volume 7.9 fL (7.4-10.4); Red Blood Cell (RBC) Count 3.29 mill/uL (4.20-5.40); White Blood Cell (WBC) Count 6.1 thou/uL (4.8-10.8)
== END 2017-09-20 15:15 | disposition home or self-care (01) ==
LOC: ONC/OP 08:52
PROVIDERS: ATTEND Internal Medicine Medical Oncology
PROC: 30233N1 Transfusion of Nonautologous Red Blood Cells into Peripheral Vein, Percutaneous Approach (ICD-10-PCS; principal; 2017-09-20)
DX: D64.9 Anemia, unspecified (principal); D69.59 Other secondary thrombocytopenia; E03.9 Hypothyroidism, unspecified; C50.919 Malignant neoplasm of unspecified site of unspecified female breast; C78.7 Secondary malignant neoplasm of liver and intrahepatic bile duct; Z79.82 Long term (current) use of aspirin; Z79.899 Other long term (current) drug therapy; Z88.0 Allergy status to penicillin; Z95.810 Presence of automatic (implantable) cardiac defibrillator; Z90.12 Acquired absence of left breast and nipple; Z90.89 Acquired absence of other organs; Z98.890 Other specified postprocedural states; Z87.440 Personal history of urinary (tract) infections; Z87.81 Personal history of (healed) traumatic fracture
CPT/HCPCS: 36430; 85025; 86850; 86900; 86901; A4216; J1642; P9016

== ENCOUNTER 2017-10-18 12:46 | Day surgery (SDC) | payer MEDICARE ==
[2017-10-18] MEDS ORDERED: Acetaminophen 500 MG TAB PO SCH (13:45)
[2017-10-18] MEDS ORDERED: diphenhydrAMINE 25 MG CAP PO SCH (13:45)
[2017-10-18] MEDS ORDERED: Sodium Chloride 0.9% 20 ML ONE (13:50)
[2017-10-18 19:00] VITALS: BP 132/59; TEMP 97.8
[2017-10-18 20:01] LABS: Hemoglobin 9.4 g/dL (12.0-16.0); MDiff Complete? YES; Mean Corpuscular HGB CONC 33.5 g/dL (32.0-36.0); Mean Corpuscular Hemoglobin 31.2 pg (27.0-31.0); Mean Corpuscular Volume 93.2 fl (81.0-99.0); Mean Platelet Volume 7.8 fL (7.4-10.4); Platelet Count 108 thou/uL (130-400); RBC Distribution Width 14.4 % (11.5-14.5); White Blood Cell (WBC) Count 0.6 thou/uL (4.8-10.8)
[2017-10-18 20:02] LABS: Band 4 % (5-11); Eosinophils 3 % (0-10); Hypochromia SLIGHT = 6-15 cells (100X) (0-5/hpf); Large Platelets SLIGHT; Lymphocytes 57 % (21-51); Metamyelocyte 1 % (0-0); Monocytes 3 % (0-10); Neutrophil 22 % (42-75); Reactive Lymphocytes 7 % (0-10); Reflex for Review?? YES
== END 2017-10-18 19:07 | disposition home or self-care (01) ==
LOC: ONC/OP 12:46
PROVIDERS: ATTEND Internal Medicine Medical Oncology
PROC: 30233N1 Transfusion of Nonautologous Red Blood Cells into Peripheral Vein, Percutaneous Approach (ICD-10-PCS; principal; 2017-10-18)
DX: N18.3 Chronic kidney disease, stage 3 (moderate) (principal); D63.1 Anemia in chronic kidney disease; C50.919 Malignant neoplasm of unspecified site of unspecified female breast; C78.7 Secondary malignant neoplasm of liver and intrahepatic bile duct; E03.9 Hypothyroidism, unspecified; I42.9 Cardiomyopathy, unspecified; I50.22 Chronic systolic (congestive) heart failure; Z79.82 Long term (current) use of aspirin; Z79.899 Other long term (current) drug therapy; Z88.0 Allergy status to penicillin; Z95.810 Presence of automatic (implantable) cardiac defibrillator; Z90.12 Acquired absence of left breast and nipple; Z98.890 Other specified postprocedural states; Z87.440 Personal history of urinary (tract) infections; Z87.81 Personal history of (healed) traumatic fracture
CPT/HCPCS: 36415; 36430; 80053; 82248; 83615; 84100; 84550; 85025; 85060; 86850; 86900; 86901; A4216; J1642; P9016

== ENCOUNTER 2017-11-28 08:52 | Day surgery (SDC) | payer MEDICARE ==
[2017-11-28] MEDS: Acetaminophen 500 MG TAB PO SCH ×2 (09:41→09:45)
[2017-11-28] MEDS: diphenhydrAMINE 25 MG CAP PO SCH ×2 (09:41→09:45)
[2017-11-28] MEDS ORDERED: Sodium Chloride 0.9% 30 ML ONE (11:52)
[2017-11-28 16:06] VITALS: BP 146/67; TEMP 98
[2017-11-28 16:25] LABS: #Lymphocytes 0.3 thou/uL (1.20-3.40); #Monocytes 0.1 thou/uL (0.11-0.59); #Neutrophils 4.6 thou/uL (1.40-6.50); %Eosinophils 0.7 % (0.0-10.0); %Lymphocytes 5.9 % (21.0-51.0); %Monocytes 2.4 % (0.0-10.0); Hemoglobin 10.8 g/dL (12.0-16.0); Mean Corpuscular HGB CONC 32.3 g/dL (32.0-36.0); Mean Corpuscular Hemoglobin 30.8 pg (27.0-31.0); Mean Corpuscular Volume 95.4 fl (81.0-99.0); Mean Platelet Volume 7.9 fL (7.4-10.4); Platelet Count 75 thou/uL (130-400); RBC Distribution Width 15.4 % (11.5-14.5); Red Blood Cell (RBC) Count 3.52 mill/uL (4.20-5.40); White Blood Cell (WBC) Count 5.1 thou/uL (4.8-10.8)
== END 2017-11-28 16:06 | disposition home or self-care (01) ==
LOC: ONC/OP 08:52
PROVIDERS: ATTEND Internal Medicine Medical Oncology
PROC: 30233N1 Transfusion of Nonautologous Red Blood Cells into Peripheral Vein, Percutaneous Approach (ICD-10-PCS; principal; 2017-11-28)
DX: N18.3 Chronic kidney disease, stage 3 (moderate) (principal); D63.1 Anemia in chronic kidney disease; D69.6 Thrombocytopenia, unspecified; I50.22 Chronic systolic (congestive) heart failure; I42.9 Cardiomyopathy, unspecified; E03.9 Hypothyroidism, unspecified; Z88.0 Allergy status to penicillin; Z88.1 Allergy status to other antibiotic agents
CPT/HCPCS: 36430; 85025; 86850; 86900; 86901; 99211; A4216; G0463; J1642; P9016

== ENCOUNTER 2017-12-15 17:49 | Inpatient (IN) | payer MEDICARE ==
--- NOTE | 2017-12-15 18:49 | RAD ---
PORTABLE CHEST: 12/15/17 HISTORY: Dyspnea. COMPARISON: 08/07/17. There is right basilar opacification consistent with atelectasis/infiltrate and effusion. Cardiomegal y. Mild vascular congestion. AICD leads are unchanged. A Mediport catheter overlies the SVC. Numerous clips in the right axilla consistent with prior right breast procedure. IMPRESSION: 1. Abnormal right basilar opacification consistent with infiltrate/atelectasis and effusion. 2. Cardiomegaly with mild vascular engorgement. POS: MARTHA
[2017-12-15 19:10] LABS: #Eosinphils 0.1 thou/uL (0.0-0.7); #Lymphocytes 0.3 thou/uL (1.20-3.40); #Monocytes 0.1 thou/uL (0.11-0.59); #Neutrophils 2.2 thou/uL (1.40-6.50); %Basophils 0.8 % (0.0-1.0); %Eosinophils 1.9 % (0.0-10.0); %Lymphocytes 12.5 % (21.0-51.0); %Monocytes 2.7 % (0.0-10.0); Hemoglobin 9.1 g/dL (12.0-16.0); Mean Corpuscular HGB CONC 33.3 g/dL (32.0-36.0); Mean Corpuscular Hemoglobin 32.9 pg (27.0-31.0); Mean Corpuscular Volume 98.8 fl (81.0-99.0); Mean Platelet Volume 6.8 fL (7.4-10.4); Platelet Count 133 thou/uL (130-400); RBC Distribution Width 18.1 % (11.5-14.5); Red Blood Cell (RBC) Count 2.75 mill/uL (4.20-5.40); White Blood Cell (WBC) Count 2.7 thou/uL (4.8-10.8)
[2017-12-15 19:34] LABS: ALT (SGPT) 14 U/L (8-55); AST (SGOT) 19 U/L (5-34); Albumin 3.5 g/dL (3.4-4.8); Alkaline Phosphatase 127 U/L (40-150); Anion Gap 11 mmol/L (10-20); BUN (Urea Nitrogen) 45 mg/dL (9.8-20.1); Bilirubin, Total 0.6 mg/dL (0.2-1.2); Calc. Creatinine Clearance 0 mL/min (70-130); Calcium 8.8 mg/dL (7.8-10.44); Carbon Dioxide 32 mmol/L (23-31); Chloride 95 mmol/L (98-107); Estimated GFR-MDRD 70; Globulin 2.2 g/dL (2.4-3.5); Glucose 112 mg/dL (83-110); Potassium 3.8 mmol/L (3.5-5.1); Protein, Total 5.7 g/dL (6.0-8.3); Sodium 134 mmol/L (136-145)
[2017-12-15 19:37] LABS: CKMB 2.5 ng/mL (0-6.6); Troponin I 0.088 ng/mL (< 0.028)
[2017-12-15] MEDS ORDERED: Furosemide 40 MG/4 ML VIAL ONE (20:28)
[2017-12-15] MEDS ORDERED: Nitroglycerin 2% Ointment 1 INCH/1 GM Packet ONE (20:28)
[2017-12-15] MEDS ORDERED: HYDROcodone/Acetaminophen 5/325 mg Tablet PO PRN (21:31)
[2017-12-15] MEDS ORDERED: Ondansetron HCl/PF 4 MG/2 ML Vial IVP PRN (21:31)
[2017-12-15] MEDS ORDERED: Acetaminophen 325 MG TAB PO PRN (21:31)
[2017-12-15 23:18] LABS: Troponin I 0.082 ng/mL (< 0.028)
[2017-12-16 02:55] LABS: BUN (Urea Nitrogen) 42 mg/dL (9.8-20.1); Calc. Creatinine Clearance 48 mL/min (70-130); Calcium 8.8 mg/dL (7.8-10.44); Estimated GFR-MDRD 66; Glucose 163 mg/dL (83-110)
[2017-12-16 02:56] LABS: Troponin I 0.081 ng/mL (< 0.028)
[2017-12-16 02:57] LABS: Band 4 % (5-11); Hemoglobin 8.2 g/dL (12.0-16.0); Lymphocytes 14 % (21-51); MDiff Complete? YES; Mean Corpuscular HGB CONC 32.5 g/dL (32.0-36.0); Mean Corpuscular Hemoglobin 32.4 pg (27.0-31.0); Mean Corpuscular Volume 99.7 fl (81.0-99.0); Mean Platelet Volume 6.6 fL (7.4-10.4); Neutrophil 80 % (42-75); PLT Morphology Comment Appears Decreased; Platelet Count 113 thou/uL (130-400); Red Blood Cell (RBC) Count 2.53 mill/uL (4.20-5.40); White Blood Cell (WBC) Count 1.7 thou/uL (4.8-10.8)
[2017-12-16 03:04] LABS: Anion Gap 10 mmol/L (10-20); Carbon Dioxide 37 mmol/L (23-31); Chloride 95 mmol/L (98-107); Potassium 3.5 mmol/L (3.5-5.1); Sodium 138 mmol/L (136-145)
[2017-12-16] MEDS: Furosemide 40 MG/4 ML VIAL SLOW IVP SCH ×2 (05:58→14:08)
--- NOTE | 2017-12-16 06:28 | HP ---
PRIMARY CARE PHYSICIAN: Navarro Nicholas PRESENTING COMPLAINT: "My ICD was beeping." HISTORY OF PRESENT ILLNESS: A 71-year-old female with a history of breast cancer on chemotherapy, ch emotherapy induced pancytopenia, CHF, status post ICD placement, who presented to the emergency room because she heard her device beeping. She reported the device started beeping in the afternoon. It stopped and then started about an hour later. She then called her drawer hardware worker who told her to prese nt to the hospital for pacemaker check. This is her third device and has had it for the past 5 years . She reports some shortness of breath, but states she has been short of breath for the past year. There is no chest pain, no cough, no nausea, vomiting, diarrhea. She reports no fevers or chills. S he has no PND, orthopnea, but reports some lower extremity edema. She has not had her pacemaker fire and reported that it was only beeping today. Her lower extremity edema has been on for at least 3 w eeks. She was diagnosed with CHF in 2003 and has been on medications. She has been compliant. She also has a history of metastatic breast cancer and has been on chemotherapy since 2012. Breast cance r with metastasis to the liver. PAST MEDICAL HISTORY: Breast cancer, CHF, status post ICD placement, gout, left mastectomy, cardiomy opathy, thyroid insufficiency. PAST SURGICAL HISTORY: Partial hepatectomy, left mastectomy, pinning of the left hip fracture in 201 3. FAMILY HISTORY: Reviewed and noncontributory. ALLERGIES: AMOXICILLIN. REVIEW OF SYSTEMS: Constitutional: Negative. Denies chills, fevers. HEENT: Negative. Cardiovasc ular: Per HPI. Respiratory: Per HPI. Gastrointestinal: Negative. Musculoskeletal: Bilateral lo wer extremity edema. Skin: Negative. Neurologic: Negative. Endocrine: Negative. Hematologic/ly mphatic: Negative. Allergy/immunology: Negative. Psychiatric: Negative. PHYSICAL EXAMINATION: VITAL SIGNS: Stable. CONSTITUTIONAL: Not in acute distress, sitting comfortably in bed. HEENT: Normocephalic, atraumatic. Not pale, anicteric. NECK: Supple, no JVD. RESPIRATORY: Breath sounds vesicular with no wheezes or rales. Right anterior chest wall MediPort. CARDIOVASCULAR: S1, S2 only. No murmurs, rubs or gallops, 1+ lower extremity edema bilaterally. ABDOMEN: Bowel sounds present, nontender, nondistended, no organomegaly. MUSCULOSKELETAL: No musculoskeletal abnormalities. SKIN: Warm, dry, well-perfused. NEUROLOGIC: Alert and well oriented to time, place and person. No focal deficits. LABORATORY DATA: Significant for pancytopenia. Chemistry largely unremarkable. Initial troponin 0. 08 and remained at the same level. BNP approximately 1200 (increased from previous numbers). Chest x-ray, abnormal right basilar opacification consistent with infiltrate/atelectasis and effusion, card iomegaly with mild vascular engorgement. She was admitted for pacemaker interrogation and mild CHF e xacerbation, started on one dose of furosemide in the emergency room and admitted for further care. ASSESSMENT AND PLAN: 1. Malfunctioning ICD. The patient has reportedly heard her ICD beeping twice in the last 24 hours. Consult has been placed for device interrogation. 2. Acute on chronic congestive heart failure exacerbation. She presents with volume overload, lower extremity edema, congestion seen on chest x-ray and shortness of breath. We will place on IV diuret ics. Obtain Cardiology consult and resume her home medications as she has been compliant. We will a lso weigh daily and document I's and O's. Trend troponin, morphine, nitroglycerin p.r.n. for chest p ain. 3. Chemotherapy induced pancytopenia, currently asymptomatic. We will observe neutropenic precautio ns. 4. Thyroid dysfunction. Resume home thyroxine.
[2017-12-16 08:47] LABS: Troponin I 0.076 ng/mL (< 0.028)
[2017-12-16] MEDS ORDERED: LIDO PO SCH (09:00)
[2017-12-16] MEDS ORDERED: Heparin 5,000 UNITS/ML VIAL SC SCH (09:00)
[2017-12-16] MEDS ORDERED: DIPHEN PO SCH (09:00)
[2017-12-16] MEDS ORDERED: Spironolactone/Hctz 25 MG/25 MG TABLET PO SCH (09:00)
[2017-12-16] MEDS ORDERED: ANTACID PO SCH (09:00)
[2017-12-16] MEDS: Sotalol HCl 80 MG TAB PO SCH ×2 (09:31→21:06)
[2017-12-16] MEDS: Docusate 100 MG CAP PO SCH ×2 (09:32→21:07)
[2017-12-16] MEDS: Potassium Chloride 20 MEQ TAB PO SCH (09:32)
[2017-12-16] MEDS: Magnesium Oxide 400 MG TAB PO SCH ×2 (09:33→21:06)
[2017-12-16] MEDS: Aluminum & Magnesium Hydroxide 60 ML, Lidocaine 2% Viscous Solution 30 ML, diphenhydrAM... SSW SCH ×3 (09:37→21:12)
[2017-12-16] MEDS: ALPRAZolam 0.25 MG TAB PO PRN ×2 (09:39→21:06)
[2017-12-16] MEDS ORDERED: Hydrochlorothiazide 25 MG TAB PO SCH (10:30)
[2017-12-16] MEDS ORDERED: Spironolactone 25 MG TAB PO SCH (10:30)
[2017-12-16] MEDS: Thyroid 60 MG TAB PO SCH (14:58)
--- NOTE | 2017-12-16 15:38 | CON ---
DATE OF CONSULTATION: 12/16/2017 CARDIOLOGY CONSULTATION REASON FOR CONSULTATION: Congestive heart failure. PRIMARY CURED MEATS SUPERVISOR: Larry Fletcher M.D. HISTORY OF PRESENT ILLNESS: Ms. Gonzalez is a very pleasant patient of Dr. Larry Fletcher. She has been having progressive fluid retention and difficulty breathing and ultimately came to the emergenc y room due to difficulty breathing, found to be in congestive heart failure and has been admitted. Ms. Gonzalez has a long history of a nonischemic cardiomyopathy. She underwent cardiac catheteriza tion many years ago as will be outlined below with no evidence of any coronary artery disease. She h as been maintained on medicines for heart failure and her ejection fraction has actually improved. S he also has some dysrhythmia and she is on sotalol for that. She has metastatic breast cancer. She is on treatment for that. She has had some problems with hyponatremia, but with fluid restriction th at corrected. Her main problem is difficulty breathing and lower extremity edema. The patient had no fever or chills. She has, however, neutropenic. She is on chemotherapy. PAST MEDICAL HISTORY: 1. Nonischemic cardiomyopathy. 2. Previous defibrillator implantation. 3. Left mastectomy. PAST SURGICAL HISTORY: Hepatectomy, partial. FAMILY HISTORY: Negative for heart disease at a young age. ALLERGIES: AMOXICILLIN. REVIEW OF SYSTEMS: Constitutional: No significant weight gain or loss. Vision: No changes. Heari ng: No changes. Pulmonary: No cough or wheezing. Gastrointestinal: No nausea, vomiting, or diarr hea. Skin: No rashes. Neurologic: No unilateral weakness or numbness. Psychiatric: No unusual d epression or anxiety. Hematologic: No unusual bruising. Genitourinary: No burning with urination. PHYSICAL EXAMINATION: GENERAL: This is a pleasant elderly woman, in no distress. VITAL SIGNS: Blood pressure is 99/57, pulse 85 and regular. HEENT: Eyes: Sclerae nonicteric. Mouth: Mucous membranes are moist. NECK: Supple, no lymphadenopathy. LUNGS: Clear, no wheezing, rales or rhonchi. CARDIAC: Normal S1, normal S2. I do not hear any murmur, rub or gallop. ABDOMEN: Soft, nontender. EXTREMITIES: No clubbing or cyanosis. There is 1+ edema. LABORATORY AND X-RAY FINDINGS: Chest x-ray did reveal clear lung lewis on the left, infiltrate or a telectasis on the right. There is some mild vascular engorgement. BNP is 1184. ASSESSMENT: 1. Congestive heart failure, systolic, acute on chronic. 2. History of hyponatremia. 3. History of gout. 4. History of hypokalemia, but none in the recent past. PLAN: 1. She is on intravenous diuretics. 2. Continue spironolactone. 3. Would stop hydrochlorothiazide for now. 4. She is on low-dose angiotensin receptor blockers and beta blockers. 5. Repeat echocardiogram. Dr. Fletcher is to resume care tomorrow. If defibrillator beeping, we wi ll have the device checked during this hospitalization.
--- NOTE | 2017-12-16 15:51 | PDOC.PN ---
- Subjective Encounter Start Date: 12/16/17 Encounter Start Time: 15:00 Patient is seen today, alert and oriented. She c/o beeping of her Defibrillator but Not firing. She has persistant SOB and volume overload state. - Objective Resuscitation Status: Resuscitation Status FULL:Full Resuscitation MAR Reviewed: Yes Vital Signs & Weight: Vital Signs (12 hours) Temp Pulse Pulse Pulse Resp BP BP 12/16/17 14:28 87 84 92/52 L 109/49 L 12/16/17 11:32 98.4 F 85 16 12/16/17 09:31 93 12/16/17 08:00 98.5 F 93 20 12/16/17 04:00 98.4 F 90 20 BP Pulse Ox Pulse Ox Pulse Ox 12/16/17 14:28 97 95 12/16/17 11:32 99/57 L 98 12/16/17 09:31 12/16/17 08:00 118/66 98 12/16/17 04:00 116/55 L 98 Weight Weight 109 lb 6.4 oz I&O: 12/15/17 12/16/17 12/17/17 06:59 06:59 06:59 Intake Total 480 Output Total 800 Balance -320 Result Diagrams: 12/16/17 01:58 12/16/17 01:58 Radiology Reviewed by me: Yes Phys Exam - Physical Examination HEENT: PERRLA, moist MMs Neck: no nodes, supple Respiratory: wheezing present Cardiovascular: RRR, no significant murmur Gastrointestinal: soft, non-tender Musculoskeletal: pulses present, edema present Neurological: non-focal, normal sensation Lymphatic: no nodes Psychiatric: normal affect, A&O x 3 Dx/Plan (1) CHF (congestive heart failure) Code(s): I50.9 - HEART FAILURE, UNSPECIFIED Status: Acute Qualifiers: Qualified Code(s): I50.22 - Chronic systolic (congestive) heart failure Comment: Pt will be continued on IV lasix and aggresive diuresis, clear volume Overload, elevated BNp, Dr. Self following. Pt on ACEI , BB, Waiting on Medtronic interogation of AICD. (2) Chemotherapy induced neutropenia Code(s): D70.1 - AGRANULOCYTOSIS SECONDARY TO CANCER CHEMOTHERAPY; T45.1X5A - ADVERSE EFFECT OF ANTINEOPLASTIC AND IMMUNOSUP DRUGS, INIT Status: Acute Comment: on chemotherapy due to BRCA; cont neutropenic precautions (3) Hypomagnesemia Code(s): E83.42 - HYPOMAGNESEMIA Status: Acute Comment: due to decreased oral intake and increased Gi loss, replace, recheck (4) Leukopenia Code(s): D72.819 - DECREASED WHITE BLOOD CELL COUNT, UNSPECIFIED Status: Acute Comment: No evidence of infection, Will sarah Monitor, pt sees Dr. Smith. Metastatic B ca (5) Breast CA Status: Chronic Qualifiers: Patient sex: female Comment: Continue To Monitor Now Metastatic liver. - Plan cont current plan of care, PT/OT, social work faculty member, respiratory therapy, incentive spirometry, out of bed/ambulate, DVT proph w/lovenox * . - Discharge Day Encounter end time: 15:35 Review of Systems - Review of Systems Constitutional: negative: fever, chills, sweats, weakness, malaise, other Eyes: negative: Pain, Vision Change, Conjunctivae Inflammation, Eyelid Inflammation, Redness, Other ENT: negative: Ear Pain, Ear Discharge, Nose Pain, Nose Discharge, Nose Congestion, Mouth Pain, Mouth Swelling, Throat Pain, Throat Swelling, Other Respiratory: Cough, Shortness of Breath Cardiovascular: negative: chest pain, palpitations, orthopnea, paroxysmal nocturnal dyspnea, edema, light headedness, other Gastrointestinal: negative: Nausea, Vomiting, Abdominal Pain, Diarrhea, Constipation, Melena, Hematochezia, Other Genitourinary: negative: Dysuria, Frequency, Incontinence, Hematuria, Retention , Other Musculoskeletal: negative: Neck Pain, Shoulder Pain, Arm Pain, Back Pain, Hand Pain, Leg Pain, Foot Pain, Other - Medications/Allergies Allergies/Adverse Reactions: Allergies Allergy/AdvReac Type Severity Reaction Status Date / Time Penicillins Allergy Unknown Verified 12/15/17 23:52 amoxicillin [Amoxicillin] AdvReac Severe Emesis Verified 12/15/17 23:52 Medications: Current Medications Acetaminophen (Tylenol) 650 mg PO Q4H PRN PRN Reason: Headache/Fever or Pain Hydrocodone Bitart/Acetaminophen ([place] 5/325) 1 tab PO Q4H PRN PRN Reason: Moderate Pain (4-6) Alprazolam (Xanax) 0.25 mg PO TID PRN PRN Reason: Anxiety Last Admin: 12/16/17 09:39 Dose: 0.25 mg Aspirin (Aspirin) 325 mg PO HS [facility] Al Hydroxide/Mg Hydroxide 60 ml/ Lidocaine HCl 30 ml/Diphenhydramine HCl 75 mg 0 ml SSW TID [facility] Last Admin: 12/16/17 12:40 Dose: Not Given Docusate Sodium (Colace) 100 mg PO BID [facility] Last Admin: 12/16/17 09:32 Dose: 100 mg Famotidine (Pepcid) 10 mg PO PRN PRN PRN Reason: acid reflux Furosemide (Lasix) 40 mg SLOW IVP 0600,1400 [facility] Last Admin: 12/16/17 14:08 Dose: 40 mg Magnesium Oxide (Magnesium Oxide) 400 mg PO BID [facility] Last Admin: 12/16/17 09:33 Dose: Not Given Ondansetron HCl (Zofran) 4 mg IVP Q6H PRN PRN Reason: Nausea/Vomiting Ondansetron HCl (Zofran Odt) 4 mg PO PRN PRN PRN Reason: Nausea Potassium Chloride (K-Dur) 20 meq PO QAM-WM [facility] Last Admin: 12/16/17 09:32 Dose: 20 meq Sertraline HCl (Zoloft) 50 mg PO DAILY [facility] Last Admin: 12/16/17 09:32 Dose: Not Given Sodium Chloride (Flush - Normal Saline) 10 ml IVF Q12HR [facility] Last Admin: 12/16/17 09:33 Dose: 10 ml Sodium Chloride (Flush - Normal Saline) 10 ml IVF PRN PRN PRN Reason: Saline Flush Sotalol HCl (Betapace) 120 mg PO BID [facility] Last Admin: 12/16/17 09:31 Dose: 120 mg Spironolactone (Aldactone) 25 mg PO DAILY [facility] Thyroid ([place] Thyroid) 60 mg PO DAILY [facility] Last Admin: 12/16/17 14:58 Dose: Not Given Valsartan (Diovan) 40 mg PO QPM [facility]
[2017-12-16] MEDS ORDERED: Valsartan 80 MG TAB PO SCH (21:00)
[2017-12-16] MEDS: Aspirin 325 MG TAB PO SCH (21:07)
[2017-12-16] MEDS: Famotidine 20 MG TAB PO PRN (21:07)
[2017-12-17] MEDS: Thyroid 60 MG TAB PO SCH (06:10)
[2017-12-17] MEDS: Furosemide 40 MG/4 ML VIAL SLOW IVP SCH (06:11)
[2017-12-17 06:16] LABS: Iron 215 ug/dL (50-170); Iron Binding Capacity, Total 209 mcg/dL (265-497)
[2017-12-17] MEDS ORDERED: Hydrochlorothiazide 25 MG TAB PO SCH (09:00)
[2017-12-17] MEDS: Docusate 100 MG CAP PO SCH ×2 (09:24→20:44)
[2017-12-17] MEDS: Magnesium Oxide 400 MG TAB PO SCH ×3 (09:25→20:44)
[2017-12-17] MEDS: Spironolactone 25 MG TAB PO SCH (09:25)
[2017-12-17] MEDS: Sotalol HCl 80 MG TAB PO SCH ×2 (09:25→20:44)
[2017-12-17] MEDS: Potassium Chloride 20 MEQ TAB PO SCH (09:25)
[2017-12-17] MEDS: Aluminum & Magnesium Hydroxide 60 ML, Lidocaine 2% Viscous Solution 30 ML, diphenhydrAM... SSW SCH ×3 (09:34→20:59)
[2017-12-17] MEDS: ALPRAZolam 0.25 MG TAB PO PRN ×3 (09:38→20:46)
[2017-12-17] MEDS ORDERED: Sodium Chloride 0.9% 250 ML IV SCH (10:30)
[2017-12-17 11:37] LABS: #Eosinphils 0.1 thou/uL (0.0-0.7); #Lymphocytes 0.3 thou/uL (1.20-3.40); #Monocytes 0.1 thou/uL (0.11-0.59); #Neutrophils 1.8 thou/uL (1.40-6.50); %Eosinophils 3.1 % (0.0-10.0); %Lymphocytes 13.3 % (21.0-51.0); %Monocytes 2.2 % (0.0-10.0); %Neutrophils 81.4 % (42.0-75.0); Hemoglobin 7.4 g/dL (12.0-16.0); Mean Corpuscular HGB CONC 30.5 g/dL (32.0-36.0); Mean Corpuscular Hemoglobin 31.3 pg (27.0-31.0); Mean Platelet Volume 7.1 fL (7.4-10.4); Platelet Count 77 thou/uL (130-400); RBC Distribution Width 17.8 % (11.5-14.5); Red Blood Cell (RBC) Count 2.36 mill/uL (4.20-5.40); White Blood Cell (WBC) Count 2.3 thou/uL (4.8-10.8)
[2017-12-17 11:55] LABS: BUN (Urea Nitrogen) 43 mg/dL (9.8-20.1); Calc. Creatinine Clearance 47 mL/min (70-130); Calcium 8.8 mg/dL (7.8-10.44); Estimated GFR-MDRD 65; Glucose 112 mg/dL (83-110)
[2017-12-17 12:04] LABS: Chloride 92 mmol/L (98-107); Potassium 3.7 mmol/L (3.5-5.1); Sodium 138 mmol/L (136-145)
[2017-12-17 12:06] LABS: Anion Gap 10 mmol/L (10-20); Carbon Dioxide 40 mmol/L (23-31)
--- NOTE | 2017-12-17 13:13 | OP ---
DATE OF PROCEDURE: 12/17/2017 ICD INTERROGATION REPORT REASON FOR INTERROGATION: Ms. Gonzalez is a 71-year-old woman with recent ICD alert. Her interrog ation revealed a Medtronic XT DR dual chamber pacemaker defibrillator. The lead parameters are atria l impedance of 361 ohms. RV 285 ohms, thresholds 31 ohms, SVC 39 ohms. The atrial capture th reshold 0.5 at 0.4 milliseconds, the ventricular pacing threshold was 0.75 volts at 0.4 milliseconds. Confirmed DDDR 70-150 beats per minute. There is gradually decreasing impedance trend noted on the RV lead. The transient dropped down below 200 and up to 185. Heart threshold also on 1, but there was a short period of over 1.6 is noted. No ventricular arrhythmias are detected. CONCLUSION: 1. This is a dual chamber ICD with RV lead chronically down trending impedance, but still adequate p acing and sensing parameters. So far, no malfunctions noted. This change could be related to mild i solation failure, though at this point not impeding the ablative device to function adequately. Coul d potentially increase the battery drainage, but has been able RV pacing this likely not to be an iss ue either. PLAN: Continue interrogation of the lead parameters for now.
[2017-12-17] MEDS: Sodium Chloride 0.9% 250 ML IV SCH ×3 (13:21→13:23)
--- NOTE | 2017-12-17 14:03 | CON ---
DATE OF CONSULTATION: 12/17/2017 DICTATED BY: Neha Cutler REFERRING PHYSICIAN: Dr. Anastasia Self REASON FOR CONSULTATION: ICD management and arrhythmia management. HISTORY OF PRESENT ILLNESS: Ms. Gonzalez is a pleasant lady who is known in our clinic and is also a patient of Dr. Larry Fletcher. She was last evaluated in clinic on 11/22/2017 at which point she w as found to be in NYHA class II functional status. She was having some mild swelling of the lower ex tremities and was appropriately taking diuretics for that. At that time, she was having some mild dy spnea, but had recently started a new chemotherapy regimen. She presented to the emergency room with progressive fluid retention and shortness of breath and was found to be in congestive heart failure. She has been admitted for diuresis and management. She also has nonischemic cardiomyopathy and has undergone left heart catheterization years ago which at that time did not reveal any significant cor onary artery disease. Her heart failure has been medically managed and ejection fraction has improve d in the past. Overall, Ms. Gonzalez reports that she is feeling somewhat better. She has not had any fevers, chi lls or malaise despite her chemotherapy and she is neutropenic at this time. She has continued to leonard ve some shortness of breath, but otherwise is without complaint. PAST MEDICAL HISTORY: 1. Chronic systolic congestive heart failure with nonischemic dilated cardiomyopathy and a reduced L VEF. 2. History of ventricular tachycardia, currently suppressed with sotalol. 3. Status post EP study producing inducible VT and subsequent dual chamber pacemaker implanted in . 4. Status post generator and RV lead revision on 03/19/2009 with capping of old leads. 5. Status post ICD generator in 05/2014 with a Medtronic Evera DR dual chamber device. 6. History of hyperthyroidism. 7. History of breast cancer, status post left mastectomy. PAST SURGICAL HISTORY: Partial hysterectomy. FAMILY HISTORY: Negative for coronary artery disease before the age of 55 and negative for some card iac . ALLERGIES: AMOXICILLIN. HOME MEDICATIONS: Slow-Mag 1 tab daily, [place] Thyroid, spironolactone/hydrochlorothiazide 20/25 mg b.i.d., carvedilol 3.125 mg b.i.d., Diovan 40 mg daily, aspirin 325 mg daily, sotalol 120 mg b.i.d., Zyrtec 10 mg at bedtime. REVIEW OF SYSTEMS: CONSTITUTIONAL: Negative for fevers, chills, malaise, night sweats or recent weight fluctuations. HEENT: Negative for hearing changes, vision changes, speech changes or difficulty swallowing. PULMONARY: Negative for recent respiratory illness, cough or wheeze. Positive for progressive short ness of breath and dyspnea on exertion. CARDIOVASCULAR: Negative for heart racing, palpitations, chest pain, low pressure. GASTROINTESTINAL: Negative for nausea, vomiting, diarrhea or blood in the stool. GENITOURINARY: Negative for burning, frequency, hesitancy or blood in the urine. NEUROLOGIC: Negative for stroke or stroke-like symptoms including unilateral weakness, speech change s, vision changes, paresthesias or facial droop. HEMATOLOGIC: Negative for increased bleeding or blood dyscrasias. PHYSICAL EXAMINATION: GENERAL: This is a pleasant elderly female in no acute distress. Her speech is clear and her affect is appropriate. HEENT: Normocephalic. Sclerae are anicteric. EOMs intact. Oral mucosa is moist and pink. There i s adequate dentition. Her neck is supple without jugular venous distention or lymphadenopathy. Her thyroid is nonpalpable. CHEST: Lungs are clear to auscultation without wheezes, crackles or rhonchi. CARDIOVASCULAR: Heart rate is regularly regular without significant murmur, rub or gallop. EXTREMITIES: Warm and dry to touch without clubbing or cyanosis. There is 1+ edema to bilateral low er extremities. ABDOMEN: Soft and nontender without palpable masses. Hepatojugular reflex is negative. Device is p alpable at the left infraclavicular fossa without swelling, bruising, erosion or drainage. DATABASE: Chest x-ray on 12/15/2017 - Impression; 1) abnormal right basilar opacification consistent with infiltrate, atelectasis and effusion. 2) Cardiomegaly with mild vascular engorgement. AICD rogers ds are unchanged. MediPort catheter, otherwise SVC and numerous clips in the right axilla consistent with prior right breast procedure. HEMATOLOGY: On 12/17/2017, WBC 2.3, hemoglobin 7.4, hematocrit 24.3, platelet count is 77. Chemistr y on 12/17/2017 - Sodium 138, potassium 3.7, chloride 92, carbon dioxide 40, BUN 43, creatinine 0.86. Review of telemetry tracings; sinus rhythm in the 70-80 beats per minute range with demand atrial and RV pacing. DEVICE CHECK: Interrogation of her device reveals a Medtronic Evera XT DR dual chamber pacemaker def ibrillator with battery longevity estimated at 6.4 years. No ventricular arrhythmias and low grade a trial arrhythmia burden is seen only. Atrial lead parameters are adequate. RV thresholds has gradua lly been trending up over the past 6-8 months. Lead is still fully functional. IMPRESSION: 1. Congestive heart failure. 2. History of ventricular tachycardia, currently quiescent on sotalol. 3. Breast cancer. 4. Inclusion of an ICD. 5. Neutropenia. PLAN: At this time, we find her arrhythmias quiescent on antiarrhythmic therapy with sotalol. She h as very low atrial burden and no recurrence of ventricular arrhythmias. Her device is functioning no rmally, and we have been trending the RV lead thresholds. Her lead is still functional and we will c meagan to monitor as an outpatient. Thank you for allowing us to participate in the care of this patient.
--- NOTE | 2017-12-17 15:26 | PDOC.PN ---
- Subjective Encounter Start Date: 12/17/17 Encounter Start Time: 13:00 Patient is seen today, alert and oriented. She is told she is getting blood transfusion , but her she has iron over load with Serum iron of 220, and Ferritin of 1500, pt Hb 9, Explained pt need to been by Dr. Smith before any Transfucion is given. - Objective Resuscitation Status: Resuscitation Status FULL:Full Resuscitation MAR Reviewed: Yes Vital Signs & Weight: Vital Signs (12 hours) Temp Pulse Resp BP BP Pulse Ox 12/17/17 12:00 98.2 F 72 18 97/76 98 12/17/17 09:25 74 89/42 L 12/17/17 08:45 98.2 F 72 18 97 12/17/17 08:00 98.0 F 66 16 89/42 L 97 12/17/17 04:00 97.8 F 70 20 90/52 L 99 Weight Admit Weight 109 lb 9.6 oz Weight 108 lb 4.8 oz I&O: 12/16/17 12/17/17 12/18/17 06:59 06:59 06:59 Intake Total 480 520 Output Total 800 1200 Balance -320 -680 Result Diagrams: 12/17/17 11:28 12/17/17 11:28 Radiology Reviewed by me: Yes Phys Exam - Physical Examination HEENT: PERRLA, moist MMs Neck: no nodes, no JVD Respiratory: no wheezing, no rales Cardiovascular: RRR, no significant murmur Gastrointestinal: soft, non-tender Musculoskeletal: no edema, pulses present Neurological: non-focal, normal sensation Dx/Plan (1) CHF (congestive heart failure) Code(s): I50.9 - HEART FAILURE, UNSPECIFIED Status: Acute Qualifiers: Qualified Code(s): I50.22 - Chronic systolic (congestive) heart failure Comment: Pt will be continued on IV lasix and aggresive diuresis, clear volume Overload, elevated BNp, Dr. Self following. Pt on ACEI , BB, Waiting on Medtronic interogation of AICD. (2) Chemotherapy induced neutropenia Code(s): D70.1 - AGRANULOCYTOSIS SECONDARY TO CANCER CHEMOTHERAPY; T45.1X5A - ADVERSE EFFECT OF ANTINEOPLASTIC AND IMMUNOSUP DRUGS, INIT Status: Acute Comment: on chemotherapy due to BRCA; cont neutropenic precautions (3) Hypomagnesemia Code(s): E83.42 - HYPOMAGNESEMIA Status: Acute Comment: due to decreased oral intake and increased Gi loss, replace, recheck (4) Leukopenia Code(s): D72.819 - DECREASED WHITE BLOOD CELL COUNT, UNSPECIFIED Status: Acute Comment: No evidence of infection, Will sarah Monitor, pt sees Dr. Smith. Metastatic B ca (5) Breast CA Status: Chronic Qualifiers: Patient sex: female Comment: Continue To Monitor Now Metastatic liver. (6) Iron overload Code(s): E83.19 - OTHER DISORDERS OF IRON METABOLISM Status: Acute Comment: pt has elevated iron and ferritin levels, pt should not be given PRBC transfucion a tthis time, i would Consult Dr. Smith to decide on this. - Plan cont current plan of care, PT/OT, psychotherapist social worker, incentive spirometry * . - Discharge Day Encounter end time: 13:30 Review of Systems - Review of Systems Eyes: negative: Pain, Vision Change, Conjunctivae Inflammation, Eyelid Inflammation, Redness, Other ENT: negative: Ear Pain, Ear Discharge, Nose Pain, Nose Discharge, Nose Congestion, Mouth Pain, Mouth Swelling, Throat Pain, Throat Swelling, Other Respiratory: negative: Cough, Dry, Shortness of Breath, Hemoptysis, SOB with Excertion, Pleuritic Pain, Sputum, Wheezing Cardiovascular: negative: chest pain, palpitations, orthopnea, paroxysmal nocturnal dyspnea, edema, light headedness, other Gastrointestinal: negative: Nausea, Vomiting, Abdominal Pain, Diarrhea, Constipation, Melena, Hematochezia, Other Genitourinary: negative: Dysuria, Frequency, Incontinence, Hematuria, Retention , Other Musculoskeletal: negative: Neck Pain, Shoulder Pain, Arm Pain, Back Pain, Hand Pain, Leg Pain, Foot Pain, Other Skin: negative: Rash, Lesions, Eamon, Bruising, Other - Medications/Allergies Allergies/Adverse Reactions: Allergies Allergy/AdvReac Type Severity Reaction Status Date / Time Penicillins Allergy Unknown Verified 12/15/17 23:52 amoxicillin [Amoxicillin] AdvReac Severe Emesis Verified 12/15/17 23:52 Medications: Current Medications Acetaminophen (Tylenol) 650 mg PO Q4H PRN PRN Reason: Headache/Fever or Pain Hydrocodone Bitart/Acetaminophen ([place] 5/325) 1 tab PO Q4H PRN PRN Reason: Moderate Pain (4-6) Alprazolam (Xanax) 0.25 mg PO TID PRN PRN Reason: Anxiety Last Admin: 12/17/17 09:38 Dose: 0.25 mg Aspirin (Aspirin) 325 mg PO HS [facility] Last Admin: 12/16/17 21:07 Dose: 325 mg Al Hydroxide/Mg Hydroxide 60 ml/ Lidocaine HCl 30 ml/Diphenhydramine HCl 75 mg 0 ml SSW TID [facility] Last Admin: 12/17/17 14:36 Dose: Not Given Docusate Sodium (Colace) 100 mg PO BID [facility] Last Admin: 12/17/17 09:24 Dose: 100 mg Famotidine (Pepcid) 10 mg PO PRN PRN PRN Reason: acid reflux Last Admin: 12/16/17 21:07 Dose: 10 mg Magnesium Oxide (Magnesium Oxide) 400 mg PO BID [facility] Last Admin: 12/17/17 09:34 Dose: Not Given Ondansetron HCl (Zofran) 4 mg IVP Q6H PRN PRN Reason: Nausea/Vomiting Ondansetron HCl (Zofran Odt) 4 mg PO PRN PRN PRN Reason: Nausea Potassium Chloride (K-Dur) 20 meq PO QAM-WM [facility] Last Admin: 12/17/17 09:25 Dose: 20 meq Sertraline HCl (Zoloft) 50 mg PO DAILY [facility] Last Admin: 12/17/17 09:24 Dose: Not Given Sodium Chloride (Flush - Normal Saline) 10 ml IVF Q12HR [facility] Last Admin: 12/17/17 09:33 Dose: 10 ml Sodium Chloride (Flush - Normal Saline) 10 ml IVF PRN PRN PRN Reason: Saline Flush Sotalol HCl (Betapace) 120 mg PO BID [facility] Last Admin: 12/17/17 09:25 Dose: 120 mg Spironolactone (Aldactone) 25 mg PO DAILY [facility] Last Admin: 12/17/17 09:25 Dose: 25 mg Thyroid ([place] Thyroid) 60 mg PO DAILY [facility] Last Admin: 12/17/17 06:10 Dose: 60 mg
[2017-12-17] MEDS: Aspirin 325 MG TAB PO SCH (20:43)
[2017-12-18 06:16] LABS: Red Blood Cell (RBC) Count 2.89 mill/uL (4.20-5.40); White Blood Cell (WBC) Count 1.6 thou/uL (4.8-10.8)
[2017-12-18 06:17] LABS: Hemoglobin 9.2 g/dL (12.0-16.0); Mean Corpuscular Hemoglobin 31.7 pg (27.0-31.0)
[2017-12-18 06:18] LABS: Mean Corpuscular HGB CONC 31.7 g/dL (32.0-36.0); Platelet Count 54 thou/uL (130-400)
[2017-12-18 06:19] LABS: Mean Platelet Volume 7.9 fL (7.4-10.4); RBC Distribution Width 17.2 % (11.5-14.5)
[2017-12-18 06:21] LABS: #Eosinphils 0.1 thou/uL (0.0-0.7); #Lymphocytes 0.2 thou/uL (1.20-3.40); #Neutrophils 1.2 thou/uL (1.40-6.50); %Basophils 0.2 % (0.0-1.0); %Eosinophils 5.6 % (0.0-10.0); %Lymphocytes 13.8 % (21.0-51.0); %Monocytes 2.2 % (0.0-10.0); %Neutrophils 78.2 % (42.0-75.0)
[2017-12-18] MEDS ORDERED: Furosemide 40 MG TAB PO SCH (08:00)
--- NOTE | 2017-12-18 08:39 | RAD ---
AP CHEST: Indication: History of CHF. FINDINGS: There is worsening moderate right pleural effusion. Right basilar airspace opacity is worsened. Left lung remains largely clear. There is a tiny left pleural effusion. Mild cardiomegaly with pulmonary v ascular congestion persists. AIC and right chest wall port is similar. Surgical clips within the righ t axillary region are unchanged. IMPRESSION: 1. Worsening right basilar pleural parenchymal opacities suspicious for worsening pneumonia with no pneumonic effusion. Recommend correlation with continued follow up. 2. There is a suggested component of mild CHF including tiny left pleural effusion with cardiomegaly and pulmonary vascular congestion. POS: [facility]
[2017-12-18] MEDS: Famotidine 20 MG TAB PO PRN ×2 (08:55→21:19)
[2017-12-18] MEDS: Magnesium Oxide 400 MG TAB PO SCH ×2 (08:56→21:16)
[2017-12-18] MEDS: Sotalol HCl 80 MG TAB PO SCH ×2 (08:56→21:14)
[2017-12-18] MEDS: ALPRAZolam 0.25 MG TAB PO PRN ×3 (08:57→23:50)
[2017-12-18] MEDS: Thyroid 60 MG TAB PO SCH (08:57)
[2017-12-18] MEDS: Potassium Chloride 20 MEQ TAB PO SCH (08:58)
[2017-12-18] MEDS: Docusate 100 MG CAP PO SCH ×2 (08:59→21:16)
[2017-12-18] MEDS: Aluminum & Magnesium Hydroxide 60 ML, Lidocaine 2% Viscous Solution 30 ML, diphenhydrAM... SSW SCH ×3 (08:59→22:16)
[2017-12-18] MEDS: Spironolactone 25 MG TAB PO SCH (08:59)
--- NOTE | 2017-12-18 09:04 | PDOC.PN ---
- Subjective Encounter Start Date: 12/18/17 Encounter Start Time: 09:00 Subjective: nsg notes rev, estefany ovn, seated in hospital bed, voices concern that she was -: told by [employer] the beeping was a probable emergency, sent to ER, and -: device was not interrogated until Mon. She feels that she was minimized and is unhappy with aspects of her care provided. No new c/o, still feels short of breath and weak. Is not feeling that the transfusion is significantly improving her weakness or respiratory status but states that when it does help it takes 2-3 days to do so. - Objective Resuscitation Status: Resuscitation Status FULL:Full Resuscitation Vital Signs & Weight: Vital Signs (12 hours) Temp Pulse Resp BP Pulse Ox 12/18/17 03:53 97.8 F 70 16 102/57 L 100 12/18/17 00:00 97.9 F 70 16 92/51 L 99 Weight Admit Weight 109 lb 9.6 oz Weight 108 lb 14.4 oz I&O: 12/17/17 12/18/17 12/19/17 06:59 06:59 06:59 Intake Total 520 2480 Output Total 1200 1200 Balance -680 1280 Result Diagrams: 12/18/17 05:56 12/17/17 11:28 Phys Exam - Physical Examination Constitutional: NAD HEENT: PERRLA, sclera anicteric thin, almost cachetic appearing, slightly dry mm Respiratory: no wheezing, no rales, no rhonchi, clear to auscultation bilateral Cardiovascular: RRR, no significant murmur, no rub Gastrointestinal: soft, positive bowel sounds Musculoskeletal: no edema, pulses present Neurological: moves all 4 limbs Psychiatric: normal affect, A&O x 3 Dx/Plan - Plan 71F who initially p/w PPM beeping * PPM beeping * interrogated without overt evidence of malfxn * apprec cardiology c/s hx breast ca with mets * apprec onc c/s * has hx of pancytopenia 2/2 chemotherapy * no fever acute CHF * apprec card c/s * lasix 40mg PO daily * monitor I/O, BMP in AM * on 1-2L NC, weaning by bedside nursing as tolerated iron overload * rec'd pRBC 12/17/17 * will need follow up CBC, ferritin, Fe o/p hypomg * recheck in AM, replete if and as needed diet: as ping activity: as ping dvt ppx Greater than 30 min spent at bedside discussing patient's concerns. Patient does not want hospitalist making any changes to her medications or plan of care at this point in time. Offered TOF which was declined. Review of Systems - Medications/Allergies Allergies/Adverse Reactions: Allergies Allergy/AdvReac Type Severity Reaction Status Date / Time Penicillins Allergy Unknown Verified 12/15/17 23:52 amoxicillin [Amoxicillin] AdvReac Severe Emesis Verified 12/15/17 23:52 Medications: Current Medications Acetaminophen (Tylenol) 650 mg PO Q4H PRN PRN Reason: Headache/Fever or Pain Hydrocodone Bitart/Acetaminophen ([place] 5/325) 1 tab PO Q4H PRN PRN Reason: Moderate Pain (4-6) Alprazolam (Xanax) 0.25 mg PO TID PRN PRN Reason: Anxiety Last Admin: 12/17/17 20:46 Dose: 0.25 mg Aspirin (Aspirin) 325 mg PO [facility] Last Admin: 12/17/17 20:43 Dose: 325 mg Al Hydroxide/Mg Hydroxide 60 ml/ Lidocaine HCl 30 ml/Diphenhydramine HCl 75 mg 0 ml SSW TID [facility] Last Admin: 12/17/17 20:59 Dose: Not Given Docusate Sodium (Colace) 100 mg PO BID [facility] Last Admin: 12/17/17 20:44 Dose: 100 mg Famotidine (Pepcid) 10 mg PO PRN PRN PRN Reason: acid reflux Last Admin: 12/16/17 21:07 Dose: 10 mg Furosemide (Lasix) 40 mg PO DAILY-[facility] Furosemide (Lasix) 40 mg PO NOW [facility] Stop: 12/18/17 10:00 Magnesium Oxide (Magnesium Oxide) 400 mg PO BID [facility] Last Admin: 12/17/17 20:44 Dose: Not Given Ondansetron HCl (Zofran) 4 mg IVP Q6H PRN PRN Reason: Nausea/Vomiting Ondansetron HCl (Zofran Odt) 4 mg PO PRN PRN PRN Reason: Nausea Potassium Chloride (K-Dur) 20 meq PO QAM-[facility] Last Admin: 12/17/17 09:25 Dose: 20 meq Sertraline HCl (Zoloft) 50 mg PO DAILY [facility] Last Admin: 12/17/17 09:24 Dose: Not Given Sodium Chloride (Flush - Normal Saline) 10 ml IVF Q12HR [facility] Last Admin: 12/17/17 20:44 Dose: 10 ml Sodium Chloride (Flush - Normal Saline) 10 ml IVF PRN PRN PRN Reason: Saline Flush Sotalol HCl (Betapace) 120 mg PO BID [facility] Last Admin: 12/17/17 20:44 Dose: 120 mg Spironolactone (Aldactone) 25 mg PO DAILY [facility] Last Admin: 12/17/17 09:25 Dose: 25 mg Thyroid ([place] Thyroid) 60 mg PO DAILY [facility] Last Admin: 12/17/17 06:10 Dose: 60 mg Valsartan (Diovan) 40 mg PO [facility]
[2017-12-18] MEDS ORDERED: Valsartan 80 MG TAB PO SCH (21:00)
[2017-12-18] MEDS: Aspirin 325 MG TAB PO SCH (21:14)
[2017-12-18] MEDS: Valsartan 80 MG TAB PO SCH (21:15)
[2017-12-19] MEDS: Furosemide 40 MG TAB PO SCH (08:52)
[2017-12-19] MEDS: Spironolactone 25 MG TAB PO SCH (08:53)
[2017-12-19] MEDS: ALPRAZolam 0.25 MG TAB PO PRN ×3 (08:53→23:57)
[2017-12-19] MEDS: Famotidine 20 MG TAB PO PRN ×2 (08:53→20:51)
[2017-12-19] MEDS: Sotalol HCl 80 MG TAB PO SCH ×2 (08:53→20:48)
[2017-12-19] MEDS: Docusate 100 MG CAP PO SCH ×2 (08:53→20:47)
[2017-12-19] MEDS: Potassium Chloride 20 MEQ TAB PO SCH (08:53)
[2017-12-19] MEDS: Aluminum & Magnesium Hydroxide 60 ML, Lidocaine 2% Viscous Solution 30 ML, diphenhydrAM... SSW SCH ×3 (08:57→20:51)
[2017-12-19] MEDS: Magnesium Oxide 400 MG TAB PO SCH ×2 (08:57→20:48)
[2017-12-19] MEDS: Thyroid 60 MG TAB PO SCH (10:30)
[2017-12-19 12:14] LABS: BUN (Urea Nitrogen) 30 mg/dL (9.8-20.1); Calc. Creatinine Clearance 55 mL/min (70-130); Calcium 8.8 mg/dL (7.8-10.44); Estimated GFR-MDRD 73; Glucose 172 mg/dL (83-110)
[2017-12-19 12:21] LABS: #Lymphocytes 0.2 thou/uL (1.20-3.40); #Neutrophils 0.7 thou/uL (1.40-6.50); %Basophils 0.5 % (0.0-1.0); %Eosinophils 2.1 % (0.0-10.0); %Lymphocytes 23.2 % (21.0-51.0); %Neutrophils 70.2 % (42.0-75.0); Hemoglobin 8.3 g/dL (12.0-16.0); Mean Corpuscular HGB CONC 32.5 g/dL (32.0-36.0); Mean Corpuscular Hemoglobin 32.4 pg (27.0-31.0); Mean Corpuscular Volume 99.6 fl (81.0-99.0); Mean Platelet Volume 7.6 fL (7.4-10.4); Platelet Count 32 thou/uL (130-400); RBC Distribution Width 16.2 % (11.5-14.5); Red Blood Cell (RBC) Count 2.57 mill/uL (4.20-5.40); White Blood Cell (WBC) Count 1.1 thou/uL (4.8-10.8)
[2017-12-19 12:33] LABS: Chloride 91 mmol/L (98-107); Potassium 4.1 mmol/L (3.5-5.1); Sodium 137 mmol/L (136-145)
[2017-12-19 12:36] LABS: Anion Gap 10 mmol/L (10-20); Carbon Dioxide 40 mmol/L (23-31)
[2017-12-19] MEDS: Aspirin 325 MG TAB PO SCH (20:47)
[2017-12-19] MEDS: Valsartan 80 MG TAB PO SCH (20:50)
--- NOTE | 2017-12-19 23:21 | PDOC.PN ---
- Subjective Encounter Start Date: 12/19/17 Encounter Start Time: 18:00 Subjective: nsg notes rev, estefany ovn, no new c/o feels a little better than yesterday but -: still has [place] and SOB that is relieved by NC. no further cough. no fevers -: no chills - Objective Resuscitation Status: Resuscitation Status FULL:Full Resuscitation Vital Signs & Weight: Vital Signs (12 hours) Temp Pulse Resp BP BP Pulse Ox 12/19/17 20:48 74 91/42 L 12/19/17 15:55 98.7 F 69 14 92/42 L 100 12/19/17 11:20 98.4 F 72 16 80/40 L 100 Weight Admit Weight 109 lb 9.6 oz Weight 116 lb 14.4 oz I&O: 12/18/17 12/19/17 12/20/17 06:59 06:59 06:59 Intake Total 2480 1140 720 Output Total 1200 1200 650 Balance 1280 -60 70 Result Diagrams: 12/19/17 11:37 12/19/17 11:37 Phys Exam - Physical Examination Constitutional: NAD HEENT: PERRLA, moist MMs, sclera anicteric Respiratory: no wheezing, no rales, no rhonchi diminished with coarseness through RUE, RML, MLL Cardiovascular: RRR, no rub Gastrointestinal: soft, positive bowel sounds Musculoskeletal: pulses present 1+ b/l LE pitting pedal edema Neurological: moves all 4 limbs Psychiatric: normal affect, A&O x 3 Dx/Plan - Plan * 71F who initially p/w PPM beeping * PPM beeping, resolved * interrogated without overt evidence of malfxn * apprec cardiology c/s hx breast ca with mets * apprec onc c/s * has hx of pancytopenia 2/2 chemotherapy * no fever acute CHF * apprec card c/s * lasix 40mg PO daily * monitor I/O, BMP in AM * on 1-2L NC, weaning by bedside nursing as tolerated * has developed relative hypotension with SPB in 80s, asymptomatic, closely monitor iron overload * rec'd pRBC 12/17/17 * will need follow up CBC, ferritin, Fe o/p hypomg * recheck in AM, replete if and as needed diet: as ping activity: as ping dvt ppx Greater than 30 min spent at bedside Review of Systems - Medications/Allergies Allergies/Adverse Reactions: Allergies Allergy/AdvReac Type Severity Reaction Status Date / Time Penicillins Allergy Unknown Verified 12/15/17 23:52 amoxicillin [Amoxicillin] AdvReac Severe Emesis Verified 12/15/17 23:52 Medications: Current Medications Acetaminophen (Tylenol) 650 mg PO Q4H PRN PRN Reason: Headache/Fever or Pain Hydrocodone Bitart/Acetaminophen ([place] 5/325) 1 tab PO Q4H PRN PRN Reason: Moderate Pain (4-6) Alprazolam (Xanax) 0.25 mg PO TID PRN PRN Reason: Anxiety Last Admin: 12/19/17 17:31 Dose: 0.25 mg Aspirin (Aspirin) 325 mg PO HS [facility] Last Admin: 12/19/17 20:47 Dose: 325 mg Al Hydroxide/Mg Hydroxide 60 ml/ Lidocaine HCl 30 ml/Diphenhydramine HCl 75 mg 0 ml SSW TID [facility] Last Admin: 12/19/17 20:51 Dose: Not Given Docusate Sodium (Colace) 100 mg PO BID [facility] Last Admin: 12/19/17 20:47 Dose: 100 mg Famotidine (Pepcid) 10 mg PO PRN PRN PRN Reason: acid reflux Last Admin: 12/19/17 20:51 Dose: 10 mg Furosemide (Lasix) 40 mg PO DAILY-AC [facility] Last Admin: 12/19/17 08:52 Dose: 40 mg Magnesium Oxide (Magnesium Oxide) 400 mg PO BID [facility] Last Admin: 12/19/17 20:48 Dose: Not Given Ondansetron HCl (Zofran) 4 mg IVP Q6H PRN PRN Reason: Nausea/Vomiting Ondansetron HCl (Zofran Odt) 4 mg PO PRN PRN PRN Reason: Nausea Potassium Chloride (K-Dur) 20 meq PO QAM-WM [facility] Last Admin: 12/19/17 08:53 Dose: 20 meq Sertraline HCl (Zoloft) 50 mg PO DAILY [facility] Last Admin: 12/19/17 08:57 Dose: Not Given Sodium Chloride (Flush - Normal Saline) 10 ml IVF Q12HR [facility] Last Admin: 12/19/17 20:48 Dose: 10 ml Sodium Chloride (Flush - Normal Saline) 10 ml IVF PRN PRN PRN Reason: Saline Flush Sotalol HCl (Betapace) 120 mg PO BID [facility] Last Admin: 12/19/17 20:48 Dose: 120 mg Spironolactone (Aldactone) 25 mg PO DAILY [facility] Last Admin: 12/19/17 08:53 Dose: 25 mg Thyroid ([place] Thyroid) 60 mg PO DAILY [facility] Last Admin: 12/19/17 10:30 Dose: 60 mg Valsartan (Diovan) 40 mg PO HS [facility] Last Admin: 12/19/17 20:50 Dose: 40 mg
--- NOTE | 2017-12-20 08:22 | PDOC.PN ---
- Subjective Encounter Start Date: 12/20/17 Encounter Start Time: 08:20 Subjective: Seen and examined still c/o shortness of breath - Objective Resuscitation Status: Resuscitation Status FULL:Full Resuscitation Vital Signs & Weight: Vital Signs (12 hours) Temp Pulse Resp BP BP Pulse Ox 12/20/17 04:00 98.0 F 75 18 98/47 L 99 12/20/17 00:00 98.4 F 69 18 93/49 L 100 12/19/17 20:48 74 91/42 L 12/19/17 20:35 98.3 F 74 18 91/42 L 100 Weight Admit Weight 109 lb 9.6 oz Weight 118 lb I&O: 12/19/17 12/20/17 12/21/17 06:59 06:59 06:59 Intake Total 1140 720 Output Total 1200 650 Balance -60 70 Result Diagrams: 12/19/17 11:37 12/19/17 11:37 Phys Exam - Physical Examination Constitutional: NAD HEENT: PERRLA, moist MMs, sclera anicteric, TM's clear Neck: no nodes, no JVD, supple, full ROM Respiratory: no wheezing, no rales, no rhonchi, clear to auscultation bilateral Cardiovascular: RRR, no significant murmur, no rub Gastrointestinal: soft, non-tender, no distention, positive bowel sounds Musculoskeletal: pulses present Dx/Plan (1) Iron overload Code(s): E83.19 - OTHER DISORDERS OF IRON METABOLISM Status: Acute Comment: pt has elevated iron and ferritin levels, pt should not be given PRBC transfucion a tthis time, i would Consult Dr. Smith to decide on this. (2) JABARI (acute kidney injury) Code(s): N17.9 - ACUTE KIDNEY FAILURE, UNSPECIFIED Status: Acute (3) Arterial hypotension Status: Acute Qualifiers: Hypotension type: hypotension due to drug Qualified Code(s): I95.2 - Hypotension due to drugs (4) CHF (congestive heart failure) Code(s): I50.9 - HEART FAILURE, UNSPECIFIED Status: Acute Comment: Pt will be continued on IV lasix and aggresive diuresis, clear volume Overload, elevated BNp, Dr. Self following. Pt on ACEI , BB, Waiting on [employer] interogation of AICD. (5) Electrolyte abnormality Code(s): E87.8 - OTH DISORDERS OF ELECTROLYTE AND FLUID BALANCE, NEC Status: Acute (6) Chemotherapy induced neutropenia Code(s): D70.1 - AGRANULOCYTOSIS SECONDARY TO CANCER CHEMOTHERAPY; T45.1X5A - ADVERSE EFFECT OF ANTINEOPLASTIC AND IMMUNOSUP DRUGS, INIT Status: Acute Comment: on chemotherapy due to BRCA; cont neutropenic precautions (7) Hypocalcemia Code(s): E83.51 - HYPOCALCEMIA Status: Acute Comment: replace, recheck (8) Metabolic alkalosis Code(s): E87.3 - ALKALOSIS Status: Acute - Plan cont current plan of care, continue antibiotics, PT/OT, pediatric social worker, respiratory therapy Worsening leukopenia noted--reconsult Oncology -: Re-evaluate labs -: Consider blood gas evaluation -: May benefit from prn diamox -: Dispo planning-still quite leukopenic * .
[2017-12-20 08:49] VITALS: BMI 20.2
[2017-12-20] MEDS: Potassium Chloride 20 MEQ TAB PO SCH (09:52)
[2017-12-20] MEDS: Docusate 100 MG CAP PO SCH ×2 (09:52→21:37)
[2017-12-20] MEDS: Thyroid 60 MG TAB PO SCH (09:55)
[2017-12-20] MEDS: Famotidine 20 MG TAB PO PRN (09:56)
[2017-12-20] MEDS: ALPRAZolam 0.25 MG TAB PO PRN (09:56)
[2017-12-20] MEDS: Sotalol HCl 80 MG TAB PO SCH ×2 (10:54→21:37)
[2017-12-20] MEDS: Furosemide 40 MG TAB PO SCH (10:56)
[2017-12-20] MEDS: Spironolactone 25 MG TAB PO SCH (10:56)
[2017-12-20] MEDS: Magnesium Oxide 400 MG TAB PO SCH ×2 (10:56→21:36)
[2017-12-20] MEDS: Aluminum & Magnesium Hydroxide 60 ML, Lidocaine 2% Viscous Solution 30 ML, diphenhydrAM... SSW SCH ×3 (10:57→23:05)
[2017-12-20 11:21] LABS: Actual Bicarbonate (HCO3a) 44.7 mEq/L (22-26); Base Excess (BEa) 16.3 mEq/L (0 (+/-) 2.5); CO2 Tension 87.5 mmHg (35.0-45.0); Hematocrit-ABG 29.6 % (36.0-47.0); O2 Tension (PaO2) 128.1 mmHg (80.0-100.0); pH, Arterial 7.33 (7.35-7.45)
[2017-12-20 11:22] LABS: Calcium, Ionized 1.3 mmol/L (1.12-1.30); Hemoglobin (Hb) 8.6 g/dL (12.0-16.0); Puncture Site LBA
[2017-12-20] MEDS: ALPRAZolam 0.25 MG TAB PO SCH ×2 (16:35→21:35)
--- NOTE | 2017-12-20 20:32 | CON ---
DATE OF CONSULTATION: 12/20/2017 CONSULTING PHYSICIAN: Dr. Kern. REASON FOR CONSULTATION: Abnormal ABG. Seventy minutes of time was spent performing consultation with the patient at that time, greater than 50% of the time was spent with the patient and are on patient's unit. HISTORY OF PRESENT ILLNESS: The patient is a 71-year-old female [facility] with the chief complaint of her ICD was beeping. She was seen in consultation by Dr. Self. She has been treated aggressively for acute systolic congestive heart failure. She has bee n receiving copious diuretics including spironolactone, hydrochlorothiazide. The patient has been co mplaining of nonspecific belt like pain around her waist. She says she is periodically short of rhea . This led to the performance of an ABG earlier today. The ABG demonstrated pH of 7.33 with a pCO 2 of 87 and a PO2 of 128. The base excess was 16.3, actual bicarbonate value on the blood gas was 44 .7. Her serum bicarbonate is measured at 40. PAST MEDICAL HISTORY: 1. She has metastatic breast cancer that was diagnosed, I believe back in 2011. She has been told t hat she is at the end of the line in terms of the potential for further chemotherapy. Her primary on cologist is down in [place], but she also sees Oncology up here. 2. Chronic systolic congestive heart failure. 3. AICD placement. 4. Gout. 5. Left mastectomy. 6. Cardiomyopathy. 7. Thyroid disease. 8. Partial liver resection for cancer. 9. Pinning of a left hip fracture. FAMILY MEDICAL HISTORY: Unremarkable. ALLERGIES: AMOXICILLIN. SOCIAL HISTORY: Never a smoker. Does not consume alcohol. Actually, lives at home by herself and c ontinues to perform all of her activities of daily living. MEDICATIONS: Prior to admission, spironolactone/hydrochlorothiazide 25/25 one daily, sertraline 50 m g daily, Zofran 4 mg daily, alprazolam 0.25 mg t.i.d. for anxiety, magnesium chloride 450 mg b.i.d., Coreg 3.125 mg b.i.d., aspirin 325 mg nightly, Betapace 120 mg b.i.d., Pepcid as needed, Diovan 40 mg daily, Florence Thyroid 60 mg daily. CURRENT INPATIENT MEDICATIONS: Tylenol, Xanax, aspirin, Colace, Pepcid, Lasix, hydrocodone, morphine , Zofran, K-Dur, Zoloft, Betapace, spironolactone, Granix, Florence thyroid and Diovan. REVIEW OF SYSTEMS: Remarkable for steady weight, no hemoptysis. She has had some mouth sores. She has had no fever or chills. She does have nausea, no vomiting. Remainder 12 point review of systems negative. PHYSICAL EXAMINATION: VITAL SIGNS: Temperature 98.6, pulse 75, respirations 19, O2 sat 100% on 2.5 liters, blood pressure 86/42. GENERAL: The patient is 5 feet 4 inches and weighs 118 pounds. HEENT: Pupils react. Sclerae icteric. Oropharynx some dry papular lesions on the tongue. NECK: Without adenopathy or JVD. LUNGS: She has diminished breath sounds on the right base and some dullness to percussion in the rig ht base, left side is clear. CARDIAC: S1, S2 regular. ICD is palpable left upper quadrant in the chest. ABDOMEN: Soft, nontender. No hepatomegaly. EXTREMITIES: Without clubbing, cyanosis, or edema. LABORATORY DATA: As above. Additionally, she has a white blood cell count of 1.1, hematocrit 25.6, platelet count 32. INR 1.1. Sodium 137, potassium 4.1, chloride 91, CO2 of 40, BUN 30, creatinine 0 .7, glucose 172. IMAGING: I reviewed her chest x-rays. She has a chronic small right pleural effusion. She has hype rinflation of both lungs. A CT scan was obtained in June showed that the pleural effusion was t here at that time. She had hyperinflated lungs. ASSESSMENT: Chronic acid base disturbance. This patient probably has a chronic respiratory acidosis that is worsened by concurrent diuretic use and development of a chronic metabolic alkalosis. This is a difficult situation that would unlikely improve significantly with treatment. One option would be to qualify her for noninvasive ventilation; however, I am not sure it is in her best interest to g o that route with end-stage cancer. Another option would be to try Diamox to see if we can induce a mild relative metabolic acidosis and see if this will stimulate her respiratory drive. I do not see anything in the way of narcotics that she is on right now that could be suppressing her respiratory d rive. Neuromuscular disease such as myasthenia gravis and ALS would have to be kept in mind, but I t hink more likely her respiratory muscle weakness is due to cancer and total body weakness. RECOMMENDATION: I would recommend consulting palliative care and not pursuing any type of noninvasiv e ventilation at this time. Diamox could be tried. I spoke to the patient about DNR status. I do n ot think she is ready to commit to that. She is going to speak with her son samantha. She has some u nresolved issues in regards to her will that she wants to resolve before going the palliative route. Thank you for allowing me to participate in your patient's care.
[2017-12-20] MEDS: Valsartan 80 MG TAB PO SCH (21:36)
[2017-12-20] MEDS: Aspirin 325 MG TAB PO SCH (21:36)
[2017-12-21 06:23] LABS: White Blood Cell (WBC) Count 0.6 thou/uL (4.8-10.8)
[2017-12-21 06:24] LABS: Platelet Count 18 thou/uL (130-400)
[2017-12-21 06:35] LABS: BUN (Urea Nitrogen) 28 mg/dL (9.8-20.1); Calc. Creatinine Clearance 61 mL/min (70-130); Calcium 9.3 mg/dL (7.8-10.44); Estimated GFR-MDRD 80; Glucose 103 mg/dL (83-110)
[2017-12-21 06:45] LABS: Anion Gap 9 mmol/L (10-20); Chloride 93 mmol/L (98-107); Potassium 4.2 mmol/L (3.5-5.1); Sodium 140 mmol/L (136-145)
[2017-12-21 06:50] LABS: Carbon Dioxide 42 mmol/L (23-31)
[2017-12-21 07:26] LABS: Band 10 % (5-11); Eosinophils 5 % (0-10); Hemoglobin 7.7 g/dL (12.0-16.0); Lymphocytes 25 % (21-51); MDiff Complete? YES; Macrocytosis SLIGHT = 6-15 cells (100X) (0-5/hpf); Mean Corpuscular HGB CONC 31.3 g/dL (32.0-36.0); Mean Corpuscular Hemoglobin 31.3 pg (27.0-31.0); Mean Platelet Volume 8.6 fL (7.4-10.4); Monocytes 5 % (0-10); Neutrophil 55 % (42-75); PLT Morphology Comment Appears Decreased; Polychromasia SLIGHT = 2-3 cells (100X) (0-2/hpf); RBC Distribution Width 15.8 % (11.5-14.5); Red Blood Cell (RBC) Count 2.46 mill/uL (4.20-5.40)
--- NOTE | 2017-12-21 08:11 | PDOC.PN ---
- Subjective Encounter Start Date: 12/21/17 Encounter Start Time: 08:09 Subjective: WSeen and examined -not feeling great still leukopenic - Objective Resuscitation Status: Resuscitation Status FULL:Full Resuscitation Vital Signs & Weight: Vital Signs (12 hours) Pulse 12/20/17 21:37 73 Weight Admit Weight 109 lb 9.6 oz Weight 118 lb I&O: 12/20/17 12/21/17 12/22/17 06:59 06:59 06:59 Intake Total 720 960 Output Total 650 1300 Balance 70 -340 Result Diagrams: 12/21/17 05:45 12/21/17 05:45 Phys Exam - Physical Examination Constitutional: NAD HEENT: PERRLA, moist MMs, sclera anicteric, TM's clear, oral pharynx no lesions Neck: no nodes, no JVD, supple, full ROM Respiratory: no wheezing, no rales, no rhonchi, clear to auscultation bilateral Cardiovascular: RRR, no significant murmur Gastrointestinal: soft, non-tender, no distention, positive bowel sounds Musculoskeletal: no edema, pulses present Dx/Plan (1) Iron overload Code(s): E83.19 - OTHER DISORDERS OF IRON METABOLISM Status: Acute Comment: pt has elevated iron and ferritin levels, pt should not be given PRBC transfucion a tthis time, i would Consult Dr. Smith to decide on this. (2) JABARI (acute kidney injury) Code(s): N17.9 - ACUTE KIDNEY FAILURE, UNSPECIFIED Status: Acute (3) Arterial hypotension Status: Acute Qualifiers: Hypotension type: hypotension due to drug Qualified Code(s): I95.2 - Hypotension due to drugs (4) CHF (congestive heart failure) Code(s): I50.9 - HEART FAILURE, UNSPECIFIED Status: Acute Comment: Pt will be continued on IV lasix and aggresive diuresis, clear volume Overload, elevated BNp, Dr. Self following. Pt on ACEI , BB, Waiting on [employer] interogation of AICD. (5) Electrolyte abnormality Code(s): E87.8 - OTH DISORDERS OF ELECTROLYTE AND FLUID BALANCE, NEC Status: Acute (6) Chemotherapy induced neutropenia Code(s): D70.1 - AGRANULOCYTOSIS SECONDARY TO CANCER CHEMOTHERAPY; T45.1X5A - ADVERSE EFFECT OF ANTINEOPLASTIC AND IMMUNOSUP DRUGS, INIT Status: Acute Comment: on chemotherapy due to BRCA; cont neutropenic precautions (7) Hypocalcemia Code(s): E83.51 - HYPOCALCEMIA Status: Acute Comment: replace, recheck (8) Metabolic alkalosis Code(s): E87.3 - ALKALOSIS Status: Acute (9) Pancytopenia Code(s): D61.818 - OTHER PANCYTOPENIA Status: Acute - Plan PT/OT, social media executive, respiratory therapy Worsening leukopenia noted -: Appreciate pulmonary input -: Kai per the oncology team -: Diamox to address worsening metabolic alkalosis -: Prognosis -poor * .
[2017-12-21] MEDS: Potassium Chloride 20 MEQ TAB PO SCH (08:45)
[2017-12-21] MEDS: Docusate 100 MG CAP PO SCH ×2 (08:46→20:37)
[2017-12-21] MEDS: ALPRAZolam 0.25 MG TAB PO SCH ×4 (08:46→20:44)
[2017-12-21] MEDS: Magnesium Oxide 400 MG TAB PO SCH ×2 (08:47→20:37)
[2017-12-21] MEDS: Sotalol HCl 80 MG TAB PO SCH ×2 (08:48→20:36)
[2017-12-21] MEDS: Aluminum & Magnesium Hydroxide 60 ML, Lidocaine 2% Viscous Solution 30 ML, diphenhydrAM... SSW SCH ×3 (08:49→21:13)
[2017-12-21] MEDS: Furosemide 40 MG TAB PO SCH (08:52)
[2017-12-21] MEDS: Spironolactone 25 MG TAB PO SCH (08:52)
[2017-12-21] MEDS ORDERED: GRANIX 300 MCG/0.5 ML VIAL SC SCH (09:00)
[2017-12-21] MEDS: Thyroid 60 MG TAB PO SCH (10:16)
[2017-12-21] MEDS: acetaZOLAMIDE Sodium 500 mg Vial IVP SCH (10:18)
--- NOTE | 2017-12-21 10:40 | PRG ---
DATE OF SERVICE: 12/21/2017 SUBJECTIVE: The patient was about the same. Her son is at the bedside. OBJECTIVE: VITAL SIGNS: Temperature is 98.0, pulse 70, blood pressure 96/54, O2 sat 90%. HEENT: Unremarkable. NECK: No JVD. LUNGS: Distant, but clear breath sounds. CARDIAC: S1 and S2 regular. ABDOMEN: Soft. EXTREMITIES: Severe muscle wasting. The patient could not do a negative inspiratory force or vital capacity. White blood cell count 0.6, hematocrit 24.6, platelet count 18. Sodium 140, potassium 4.2, chloride 93, CO2 42, BUN 28, creatin ine 0.7, glucose 80. ASSESSMENT: Chronic respiratory failure secondary to neuromuscular weakness, likely from end-stage c ancer. RECOMMENDATION: Diamox is going to be tried for a diuretic, but I doubt this will help. Noninvasive ventilation will be an option in the future, but again I would discourage this. I think hospice wou ld be a much more realistic option.
[2017-12-21] MEDS ORDERED: Sodium Chloride 30 GM PO PRN (13:12)
[2017-12-21] MEDS ORDERED: Sodium Bicarbonate 30 GM PO PRN (13:13)
[2017-12-21] MEDS: Valsartan 80 MG TAB PO SCH (20:37)
[2017-12-21] MEDS: Aspirin 325 MG TAB PO SCH (20:37)
[2017-12-22 06:02] LABS: Hemoglobin 7.9 g/dL (12.0-16.0); Mean Corpuscular HGB CONC 31.9 g/dL (32.0-36.0); Mean Corpuscular Hemoglobin 32.3 pg (27.0-31.0); Mean Platelet Volume 9.5 fL (7.4-10.4); Platelet Count 11 thou/uL (130-400); RBC Distribution Width 15.9 % (11.5-14.5); Red Blood Cell (RBC) Count 2.45 mill/uL (4.20-5.40); White Blood Cell (WBC) Count 0.6 thou/uL (4.8-10.8)
[2017-12-22 06:14] LABS: BUN (Urea Nitrogen) 27 mg/dL (9.8-20.1); Calc. Creatinine Clearance 57 mL/min (70-130); Calcium 9.5 mg/dL (7.8-10.44); Estimated GFR-MDRD 75; Glucose 111 mg/dL (83-110)
[2017-12-22 06:25] LABS: Anion Gap 11 mmol/L (10-20); Carbon Dioxide 38 mmol/L (23-31); Chloride 94 mmol/L (98-107); Potassium 3.9 mmol/L (3.5-5.1); Sodium 139 mmol/L (136-145)
[2017-12-22 06:30] LABS: Band 6 % (5-11); Eosinophils 12 % (0-10); Lymphocytes 30 % (21-51); MDiff Complete? YES; Monocytes 12 % (0-10); Neutrophil 40 % (42-75); PLT Morphology Comment Appears Decreased
[2017-12-22] MEDS: Furosemide 40 MG TAB PO SCH (09:11)
[2017-12-22] MEDS: acetaZOLAMIDE Sodium 500 mg Vial IVP SCH (09:12)
[2017-12-22] MEDS: Docusate 100 MG CAP PO SCH ×2 (09:19→21:30)
[2017-12-22] MEDS: Sotalol HCl 80 MG TAB PO SCH ×2 (09:19→21:30)
[2017-12-22] MEDS: Thyroid 60 MG TAB PO SCH (09:19)
[2017-12-22] MEDS: ALPRAZolam 0.25 MG TAB PO SCH ×3 (09:21→20:57)
[2017-12-22] MEDS: Magnesium Oxide 400 MG TAB PO SCH ×2 (09:21→21:30)
[2017-12-22] MEDS: Potassium Chloride 20 MEQ TAB PO SCH (09:23)
[2017-12-22] MEDS: Aluminum & Magnesium Hydroxide 60 ML, Lidocaine 2% Viscous Solution 30 ML, diphenhydrAM... SSW SCH ×3 (09:24→21:30)
[2017-12-22] MEDS: Spironolactone 25 MG TAB PO SCH (09:24)
[2017-12-22] MEDS: Ondansetron ODT 4 MG TAB PO PRN (10:54)
--- NOTE | 2017-12-22 12:31 | PDOC.PN ---
- Subjective Encounter Start Date: 12/22/17 Encounter Start Time: 12:30 Subjective: Seen and examined -planned on discharging today but patient developed -: diarhoea and doesnt feel comfortable going home today - Objective Resuscitation Status: Resuscitation Status DNR:Do Not Resuscitate Vital Signs & Weight: Vital Signs (12 hours) Temp Pulse Resp BP BP Pulse Ox 12/22/17 11:58 97.5 F L 70 20 82/46 L 98 12/22/17 09:19 70 91/55 L 12/22/17 08:00 97.8 F 70 24 H 98 12/22/17 07:44 97.8 F 70 24 H 91/55 L 98 12/22/17 03:26 97.7 F 72 16 91/45 L 99 Weight Admit Weight 109 lb 9.6 oz Weight 109 lb I&O: 12/21/17 12/22/17 12/23/17 06:59 06:59 06:59 Intake Total 960 950 Output Total 1300 600 Balance -340 350 Result Diagrams: 12/22/17 05:24 12/22/17 05:24 Phys Exam - Physical Examination Constitutional: NAD HEENT: PERRLA, moist MMs, sclera anicteric, oral pharynx no lesions Neck: no nodes, no JVD, supple, full ROM Respiratory: no wheezing, no rales, no rhonchi, clear to auscultation bilateral Cardiovascular: RRR, no significant murmur, no rub Gastrointestinal: soft, non-tender, no distention, positive bowel sounds Musculoskeletal: no edema, pulses present Dx/Plan (1) Iron overload Code(s): E83.19 - OTHER DISORDERS OF IRON METABOLISM Status: Acute Comment: pt has elevated iron and ferritin levels, pt should not be given PRBC transfucion a tthis time, i would Consult Dr. Smith to decide on this. (2) JABARI (acute kidney injury) Code(s): N17.9 - ACUTE KIDNEY FAILURE, UNSPECIFIED Status: Acute (3) Arterial hypotension Status: Acute Qualifiers: Hypotension type: hypotension due to drug Qualified Code(s): I95.2 - Hypotension due to drugs (4) CHF (congestive heart failure) Code(s): I50.9 - HEART FAILURE, UNSPECIFIED Status: Acute Comment: Pt will be continued on IV lasix and aggresive diuresis, clear volume Overload, elevated BNp, Dr. Self following. Pt on ACEI , BB, Waiting on [employer] interogation of AICD. (5) Electrolyte abnormality Code(s): E87.8 - OTH DISORDERS OF ELECTROLYTE AND FLUID BALANCE, NEC Status: Acute (6) Chemotherapy induced neutropenia Code(s): D70.1 - AGRANULOCYTOSIS SECONDARY TO CANCER CHEMOTHERAPY; T45.1X5A - ADVERSE EFFECT OF ANTINEOPLASTIC AND IMMUNOSUP DRUGS, INIT Status: Acute Comment: on chemotherapy due to BRCA; cont neutropenic precautions (7) Hypocalcemia Code(s): E83.51 - HYPOCALCEMIA Status: Acute Comment: replace, recheck (8) Metabolic alkalosis Code(s): E87.3 - ALKALOSIS Status: Acute (9) Pancytopenia Code(s): D61.818 - OTHER PANCYTOPENIA Status: Acute - Plan plan discussed w/ family, continue antibiotics, PT/OT, pediatric social worker, respiratory therapy Start omnicef due to persistent leucopenia -: possible d/c next 24hrs on diamox po * .
[2017-12-22] MEDS ORDERED: Loperamide HCl 2 MG CAP PO SCH (15:45)
--- NOTE | 2017-12-22 20:51 | PRG ---
DATE OF SERVICE: 12/22/2017 SERVICE: Pulmonary Medicine. INTERVAL HISTORY: The patient is doing fine from a cardiovascular and respiratory standpoint. She is breathing comfortably. She denies having any cough or sputum production. She is breathing comfortably and has no specific complaints right now. She does not have much of an appetite, but she has elected to go home with hospice tomorrow. She is going to be on outpatient hospice at her son's place in [place]. She has decided that she wants to resend her DNI/DNR status until she can get into his location and is more comfortable. At that time, she will reinstate the DNI/DNR status and wants her defibrillator turned off at that time. PHYSICAL EXAMINATION: VITAL SIGNS: Afebrile, pulse 72, blood pressure 88/42, respirations 12, saturation 100% on 2 liters nasal cannula. GENERAL: The patient is awake, alert, in no apparent distress. LUNGS: Decreased air entry. There is not a prolonged expiratory phase. Dependent crackles are present. No rhonchi. HEART: Normal rate, regular. ABDOMEN: Soft, nontender, nondistended. Bowel sounds are positive. MUSCULOSKELETAL: No cyanosis or clubbing. No pitting in the bilateral lower extremities. NEUROLOGIC: Grossly nonfocal. LABORATORY DATA: WBC 0.6, hemoglobin 7.9, platelets 11,000. Neutrophils are 40 % and 6% bands. There are 12% eosinophils. Bicarbonate 38, chloride 94. Basic metabolic profile is otherwise unremarkable. BUN 27, creatinine 0.76. ASSESSMENT: 1. Acute hypoxic respiratory failure. 2. Deconditioning, severe DISCUSSION AND PLAN: The patient is going to be transitioned home tomorrow under the care of hospice. As such, she has no further requirements for inpatient Pulmonary or critical care opinion. Please call with additional questions or concerns moving forward. STEPHANIE
[2017-12-22] MEDS: Valsartan 80 MG TAB PO SCH (21:30)
[2017-12-22] MEDS: Aspirin 325 MG TAB PO SCH (21:30)
[2017-12-23] MEDS: ALPRAZolam 0.25 MG TAB PO SCH ×3 (00:15→13:07)
[2017-12-23 06:48] LABS: Platelet Count 11 thou/uL (130-400); White Blood Cell (WBC) Count 0.6 thou/uL (4.8-10.8)
[2017-12-23 06:54] LABS: BUN (Urea Nitrogen) 30 mg/dL (9.8-20.1); Calc. Creatinine Clearance 45 mL/min (70-130); Calcium 9.5 mg/dL (7.8-10.44); Estimated GFR-MDRD 62; Glucose 108 mg/dL (83-110); Magnesium 1.1 mg/dL (1.6-2.6)
[2017-12-23 07:04] LABS: Anion Gap 12 mmol/L (10-20); Carbon Dioxide 36 mmol/L (23-31); Chloride 93 mmol/L (98-107); Potassium 4.1 mmol/L (3.5-5.1); Sodium 137 mmol/L (136-145)
[2017-12-23 07:31] LABS: Hemoglobin 7.9 g/dL (12.0-16.0); MDiff Complete? YES; Mean Corpuscular HGB CONC 31.9 g/dL (32.0-36.0); Mean Corpuscular Hemoglobin 32.4 pg (27.0-31.0); Mean Platelet Volume 9.5 fL (7.4-10.4); RBC Distribution Width 16.1 % (11.5-14.5); Red Blood Cell (RBC) Count 2.44 mill/uL (4.20-5.40)
[2017-12-23 07:32] LABS: Band 12 % (5-11); Eosinophils 2 % (0-10); Lymphocytes 54 % (21-51); Metamyelocyte 6 % (0-0); Monocytes 4 % (0-10); Neutrophil 20 % (42-75); PLT Morphology Comment Appears Decreased
[2017-12-23] MEDS: Furosemide 40 MG TAB PO SCH (07:34)
[2017-12-23 07:35] VITALS: BP 96/52; TEMP 98
[2017-12-23] MEDS: Sotalol HCl 80 MG TAB PO SCH (08:57)
[2017-12-23] MEDS: Thyroid 60 MG TAB PO SCH (08:58)
[2017-12-23] MEDS: Docusate 100 MG CAP PO SCH (08:59)
[2017-12-23] MEDS: Magnesium Oxide 400 MG TAB PO SCH (08:59)
[2017-12-23] MEDS ORDERED: AcetaZOLAMIDE 250 MG TAB PO SCH (09:00)
[2017-12-23] MEDS: Potassium Chloride 20 MEQ TAB PO SCH (09:02)
[2017-12-23] MEDS: Aluminum & Magnesium Hydroxide 60 ML, Lidocaine 2% Viscous Solution 30 ML, diphenhydrAM... SSW SCH (09:02)
[2017-12-23] MEDS: Spironolactone 25 MG TAB PO SCH (09:03)
[2017-12-23] MEDS: Famotidine 20 MG TAB PO PRN (10:10)
[2017-12-23] MEDS: Ondansetron ODT 4 MG TAB PO PRN ×2 (10:10→13:36)
--- NOTE | 2017-12-23 11:17 | PDOC.EVN ---
Event Note - Event Note Event Note: [id number] DC Summary dictated 1. Metastatic breast ca 2. Pancytopenia 3. CHF 4. hypomagnesemia plan: refusing iv mag wants to go home on hospice will give po mag oxide 400mg [id number] for 3 days d/w pt, rn & pt son
--- NOTE | 2017-12-23 22:43 | DIS ---
DATE OF ADMISSION: 12/15/2017 DATE OF DISCHARGE: 12/23/2017 DISCHARGE DIAGNOSES: 1. Malfunctioning implantable cardioverter-defibrillator. 2. Metastatic breast cancer. 3. Pancytopenia. 4. Acute congestive heart failure. 5. History of iron overload. 6. Hypomagnesemia. 7. Severe deconditioning. 8. Acute kidney injury. 9. Hypotension. 10. Hypocalcemia. 11. Metabolic alkalosis. DISCHARGE CONDITION: Poor. DISPOSITION: Home with hospice. DISCHARGE MEDICATIONS: See med rec form. HISTORY OF PRESENT ILLNESS: See initial HPI. CONSULTANTS DURING THE HOSPITAL STAY: 1. Pulmonary Critical Care. 2. Oncology. 3. Cardiology. HOSPITAL COURSE: The patient is a 71-year-old female admitted due to malfunctioning ICD. 1. Malfunctioning ICD. The patient was seen by Cardiology during the hospital stay. The patient was initially treated with IV diuretics for CHF exacerbation , later on the patient was switched to p.o. Lasix. 2. Deconditioning and also fluid overload. The patient was seen by Pulmonary during the hospital stay for chronic respiratory failure. The patient was placed on oxygen. At the time of discharge, the patient was discharged on oxygen nasal cannula. 3. Metastatic breast cancer. The patient was seen by Hematology/Oncology during the hospital stay and patient decided to go under hospice on that day. 4. Pancytopenia: Monitored suring the hospital stay. PHYSICAL EXAMINATION: On the day of discharge, VITAL SIGNS: Blood pressure 96/52, heart rate 69, respiratory rate 18, temperature 98. GENERAL: The patient appears tired. HEENT: Anterior nares patent. Positive for nasal cannula. HEART: S1, S2 present. No murmurs, no rubs. RESPIRATORY: Diminished breath sounds present. Positive for crackles. GASTROINTESTINAL: Abdomen is soft, nontender, no guarding. MUSCULOSKELETAL: Trace edema. LABORATORY DATA: At the time of H&P performed sodium 137, potassium 4.1, chloride 93, CO2 of 36, BUN 30, creatinine 0.9. ABG showed pH of 7.33, pCO2 of 87, bicarbonate is 44. White count 0.6, hemoglobin 7.9, platelet count 11. At the time of discharge, the patient is stable. DISCHARGE CONDITION: Poor. DISCHARGE TIME: 40 minutes. Discussed with the patient and patient's son. STEPHANIE
== END 2017-12-23 14:00 | disposition home or self-care (01) | DRG 291 ==
LOC: ERS 17:49 → 2NO 20:00 → ONC 12-20 18:45
PROVIDERS: ADMIT Internal Medicine; ATTEND Internal Medicine
PROC: 4B02XTZ Measurement of Cardiac Defibrillator, External Approach (ICD-10-PCS; principal; 2017-12-17)
DX: I11.0 Hypertensive heart disease with heart failure (principal); D61.810 Antineoplastic chemotherapy induced pancytopenia; N17.9 Acute kidney failure, unspecified; J96.10 Chronic respiratory failure, unspecified whether with hypoxia or hypercapnia; E87.3 Alkalosis; R64 Cachexia; C78.7 Secondary malignant neoplasm of liver and intrahepatic bile duct; E87.1 Hypo-osmolality and hyponatremia; Z68.1 Body mass index [BMI] 19.9 or less, adult; I50.23 Acute on chronic systolic (congestive) heart failure; I42.0 Dilated cardiomyopathy; C50.912 Malignant neoplasm of unspecified site of left female breast; Z95.810 Presence of automatic (implantable) cardiac defibrillator; Z90.12 Acquired absence of left breast and nipple; M10.9 Gout, unspecified; Z88.1 Allergy status to other antibiotic agents; Z66 Do not resuscitate; E83.42 Hypomagnesemia; E83.51 Hypocalcemia; Z99.81 Dependence on supplemental oxygen; Z79.82 Long term (current) use of aspirin; Z79.899 Other long term (current) drug therapy; Z51.5 Encounter for palliative care; R19.7 Diarrhea, unspecified; I95.2 Hypotension due to drugs; T45.1X5A Adverse effect of antineoplastic and immunosuppressive drugs, initial encounter; E83.19 Other disorders of iron metabolism
CPT/HCPCS: 36415; 36430; 71045; 80048; 80053; 82553; 82728; 82805; 83540; 83550; 83735; 83880; 84443; 84484; 85025; 86850; 86900; 86901; 93005; 93798; 94760; 96374; A4216; J1120; J1442; J1642; J1940; P9016; Q0162